=== PATIENT | male | born 1995 ===

== ENCOUNTER 2022-09-08 08:57 | Emergency (ER) | payer OTHER, SELFPAY ==
--- NOTE | ~2022-09-08 | CT_ITS ---
EXAMINATION: CT ABDOMEN AND PELVIS WITHOUT CONTRAST CLINICAL INFORMATION: Left lower quadrant pain. Elevated white count. COMPARISON: None TECHNIQUE: Multidetector volumetric imaging was performed from the superior aspect of the liver through the pubic symphysis. Sagittal and coronal reformatted images were obtained on the technologist's workstation. This CT examination was performed using dose optimization techniques as appropriate, variously including the following: *Automated exposure control *Adjustment of mA and/or kV according to patient size (this includes techniques or standardized protocols for targeted exams where dose is matched to indication/reason for exam; i.e. extremities or head) *Use of iterative reconstruction technique DLP: 502 mGy-cm FINDINGS: LUNG BASES: The visualized lung bases are unremarkable. LIVER, GALLBLADDER, AND BILIARY TREE: The liver is normal in size, shape, and attenuation. No focal hepatic lesion or biliary ductal dilatation is present. The gallbladder is unremarkable with no evidence of radiopaque gallstones, gallbladder wall thickening, or obvious pericholecystic inflammatory changes. PANCREAS: Unremarkable. SPLEEN: Unremarkable. ADRENAL GLANDS: Unremarkable. KIDNEYS AND URETERS: The kidneys are normal in size, shape, and attenuation. No hydronephrosis, hydroureter, or calculi seen. No perinephric stranding. BLADDER: Unremarkable. GASTROINTESTINAL TRACT: The small and large bowel are unremarkable. There is a small appendicolith with normal-appearing appendix best visualized on sagittal image 57/7. ABDOMINAL WALL: No significant hernia is appreciated. LYMPH NODES: Normal. VASCULAR: Unremarkable. PELVIC VISCERA: Unremarkable. OSSEOUS STRUCTURES: No aggressive lytic or sclerotic process seen. CT/CT abdomen pelvis wo IV con IMPRESSION: No acute intra-abdominal process seen. Fleischner guidelines were followed.
[2022-09-08 09:00] VITALS: BP 145/110; PULSE 133; RESP 18; TEMP 36.3; O2SAT 98; BMI 27.1
[2022-09-08 09:13] LABS: MANUAL DIFF FLAG NO
[2022-09-08 09:16] LABS: Basophils Percent Auto 0.2 % (0-2); Eosinophils Absolute Auto 0.1 X10*3/uL (0.0-0.4); Eosinophils Percent Auto 0.5 % (0-4); Hematocrit 44.3 % (42.0-52.0); Hemoglobin 15.1 g/dl (14.0-18.0); Imm Gran Abs Auto 0.05 X10*3/uL (0.00-0.03); Imm Gran Pct Auto 0.4 % (0.0-0.4); Lymphocytes Absolute Auto 2.4 X10*3/uL (1.2-4.9); Lymphocytes Percent Auto 17.8 % (20-40); Mean Corpuscular HGB Conc 34.1 g/dl (31.0-36.0); Mean Corpuscular Hemoglobin 28.9 pg (27.0-33.0); Mean Corpuscular Volume 84.9 fL (80.0-98.0); Mean Platelet Volume 9.7 fL (9.4-12.4); Monocytes Absolute Auto 0.8 X10*3/uL (0.1-1.2); Neutrophils Absolute Auto 10.2 x10*3/uL (2.0-8.3); Neutrophils Percent Auto 75.1 % (45-73); Platelet Count 223 X10*3/uL (160-400); Red Blood Count 5.22 X10*6/uL (4.60-5.80); Red Cell Distribution Width 12.4 % (11.0-16.0); White Blood Count 13.6 X10*3/uL (4.8-10.8)
[2022-09-08 09:31] LABS: Anion Gap 12 (12-20); Blood Urea Nitrogen 9 mg/dL (9-16); Calcium 10.1 mg/dL (8.4-10.2); Carbon Dioxide 26 mmol/L (22-29); Chloride 105 mmol/L (96-108); Creatinine Clr Calc Pharmacy 131.2; Estimated Glomerular Filt Rate > 60; Glucose Random 105 mg/dL (60-115); Potassium 4.2 mmol/L (3.3-5.1); Sodium 139 mmol/L (135-145)
[2022-09-08 09:34] VITALS: BP 133/69
[2022-09-08 11:30] VITALS: BP 128/74; PULSE 113; RESP 20; O2SAT 100
--- NOTE | 2022-09-08 11:41 | ED_ITS ---
HPI - General Adult General Chief complaint: Abdominal Pain Stated complaint: abd pain Time Seen by Provider: 09/08/22 11:41 Source: patient Mode of arrival: ambulatory Limitations: no limitations History of Present Illness HPI narrative: Patient is a 27 year old assigned male at with no reported medical history presenting to the emergency department today with abdominal pain. Patient states that at 0300 today he woke up with left lower quadrant abdominal pain. Patient states that the pain has resolved now. Patient states that his last bowel movement was today and was uneventful. Patient denies any dizziness, lightheadedness, abdominal pain, nausea, vomiting, fever, chills, blurry vision, double vision, loss of vision, chest pain, difficulty breathing, shortness of breath, back pain, night sweats, pain with urination, increased urinary frequency, increased urinary urgency, blood in his urine or stool, syncope or a near syncopal episode, recent trauma or falls, bowel incontinence, bladder incontinence, bowel retention, bladder retention, or any other complaints at this time. Onset (ago): hour(s) Location: abdomen and left Radiation: non-radiation Severity: mild Severity scale (1-10): 4 Quality: dull Pain Consistency: now resolved Relieving factors: none Exacerbating factors: none Associated symptoms: denies other symptoms Treatments prior to arrival: none Related Data Allergies Allergy/AdvReac Type Severity Reaction Status Date / Time No Known Allergies Allergy Verified 09/08/22 09:05 Review of Systems Constitutional: Constitutional: Reports no additional constitutional complaints, Denies chills, Denies fever(s) and Denies night sweats Eyes: Eyes: Reports no additional eye complaints, Denies blurry vision, Denies change in vision, Denies diplopia, Denies eye discharge, Denies loss of vision and Denies eye pain ENT: Denies dizziness Cardiovascular: Cardiovascular: Reports no additional cardiovascular complaints, Denies chest pain, Denies lightheadedness, Denies Loss of Consciousness and Denies dyspnea Respiratory: Respiratory: Reports no additional respiratory complaints and Denies dyspnea Gastrointestinal: Gastrointestinal: Reports no additional gastrointestinal complaints, Reports abdominal pain, Denies melena, Denies hematochezia, Denies change in bowel habits and Denies change in stool character Genitourinary: Genitourinary: Reports no additional male genitourinary complaints, Denies hematuria, Denies oliguria, Denies difficulty urinating, Denies dysuria, Denies urinary frequency, Denies urinary hesitancy, Denies urinary incontinence and Denies urinary urgency Musculoskeletal: Musculoskeletal: Reports no additional musculoskeletal complaints, Denies numbness and Denies tingling Neurologic: Denies dizziness, Denies loss of vision, Denies numbness and Denies tingling Psychiatric: Psychiatric: Reports no additional psychiatric complaints Endocrine: Endocrine: Reports no additional endocrine complaints Hematologic/Lymphatic: Hematologic/Lymphatic: Reports no additional hematologic/lymphatic complaints Allergic/Immunologic: Allergic/Immunologic: Reports no additional allergic/immunologic complaints [facility] Past Medical History Attestation statement: The following information was validated with the patient. Source: old records reviewed and nursing notes reviewed Social History Social History Advance Directives: No Advance Directives Information Provided: No Physical Exam ED Vital Signs: Vital Signs - 24 hr 09/08/22 09:00 09/08/22 09:34 09/08/22 11:30 Temperature 97.4 F Pulse Rate 133 H 113 H Respiratory Rate 18 20 Blood Pressure 145/110 H 133/69 128/74 Pulse Oximetry 98 100 Oxygen Delivery Method Room Air Room Air 09/08/22 13:40 Temperature Pulse Rate 105 H Respiratory Rate 16 Blood Pressure 113/66 Pulse Oximetry 100 Oxygen Delivery Method Room Air BMI result Body Mass Index 27.1 Const General: cooperative, no acute distress, alert and awake Nutritional Appearance: well nourished Orientation/consciousness: patient oriented x3 Limitations: no limitations HENMT Head: Yes normal to inspection and Yes atraumatic Ears: hearing grossly normal bilaterally and external ears normal General nose exam: Normal external nose present, no nasal discharge noted and no epistaxis Face and sinus: Yes normal facial exam, No abrasion and No laceration Mouth: Normal oral and palatal mucosa present, no drooling and no muffled voice Eyes General: appearance normal, both eyes and all related structures Periorbital: periorbital findings normal Eyelids: Yes eyelids normal Conjunctivae: conjunctivae normal Pupils: Equal, round and reactive pupils present EOM: EOMs intact bilaterally Neck Neck: Yes normal visual inspection, Yes full ROM and Yes no lymphadenopathy Chest Chest palpation & inspection: normal inspection of the chest Resp Effort & Inspection: normal respiratory effort and able to speak in complete sentences Auscultation: clear to auscultation bilaterally Cardio Rate: regular rate Rhythm: regular rhythm GI Inspection: Yes normal to inspection Palpation (GI): Soft to palpation, not firm, nontender, no guarding and not rigid Neuro General: patient oriented x3 and moves all extremities Cranial nerves: Yes Equal, round and reactive pupils present Cognition (Neuro): normal cognition Motor exam (neuro): 5/5 motor strength present throughout Sensory Exam: Normal double simultaneous stimulation for sensation Coordination: [id number] test normal Extrem General: Yes normal to inspection, Yes full ROM and Yes capillary refill normal Psych Appearance: grossly normal Mental Status: mental status grossly normal Affect: normal affect Attitude: cooperative Thought process: Normal thought process present Thought content: Normal thought content present Insight: Good insight present (Psych) Medical Decision Making Medical Decision Making MDM Narrative: Patient is a 27 year old assigned male at with no reported medical history presenting to the emergency department today with left lower quadrant abdominal pain. Patient's physical exam was unremarkable. Patient's blood work showed a slightly elevated WBC count of 13.6 but was otherwise unremarkable. Patient's urine showed no acute process. Patient's abdominal CT showed no acute process. I explained my physical exam findings as well as all test results to the patient. I answered all questions asked by the patient. I stressed the importance of the patient taking his medication as prescribed. I stressed the importance of the patient following up with his primary care provider. I stressed the importance of the patient returning to the emergency department immediately if his symptoms were to worsen or if he were to develop any dizziness, shortness of breath, difficulty breathing, chest pain, blurry vision, loss of vision, nausea, vomiting, abdominal pain, fever, chills, back pain, or any other complaints. Patient verbalized agreement and understanding with this treatment plan and discharge. Differential Diagnosis Differential Diagnoses: The differential diagnosis associated with the presentation includes abdominal pain, constipation Lab Data MDM Lab Attestation statement: I reviewed the patient's lab results. Result Diagrams: 09/08/22 09:07 09/08/22 09:07 Labs: Lab Results 09/08/22 09/08/22 09/08/22 Range/Units 09:07 09:07 12:00 WBC 13.6 H (4.8-10.8) X10*3/uL RBC 5.22 (4.60-5.80) X10*6/uL Hgb 15.1 (14.0-18.0) g/dl Hct 44.3 (42.0-52.0) % MCV 84.9 (80.0-98.0) fL MCH 28.9 (27.0-33.0) pg MCHC 34.1 (31.0-36.0) g/dl RDW 12.4 (11.0-16.0) % Plt Count 223 (160-400) X10*3/uL MPV 9.7 (9.4-12.4) fL Immature Gran % (Auto) 0.4 (0.0-0.4) % Neut % (Auto) 75.1 H (45-73) % Lymph % (Auto) 17.8 L (20-40) % [place] % (Auto) 6.0 (2-11) % Eos % (Auto) 0.5 (0-4) % Baso % (Auto) 0.2 (0-2) % Lymph # (Auto) 2.4 (1.2-4.9) X10*3/uL [place] # (Auto) 0.8 (0.1-1.2) X10*3/uL Eos # (Auto) 0.1 (0.0-0.4) X10*3/uL Baso # (Auto) 0.0 (0.0-0.2) X10*3/uL Abs Immat Gran (auto) 0.05 H (0.00-0.03) X10*3/uL Absolute Neuts (auto) 10.2 H (2.0-8.3) x10*3/uL Absolute Nucleated RBC 0.000 (0.0-0.012) X10*3/uL Nucleated RBC % (auto) 0.0 (0.0-0.2) /100WBC Sodium 139 (135-145) mmol/L Potassium 4.2 (3.3-5.1) mmol/L Chloride 105 (96-108) mmol/L Carbon Dioxide 26 (22-29) mmol/L Anion Gap 12 (12-20) BUN 9 (9-16) mg/dL Creatinine 0.92 (0.5-1.4) mg/dL Estim Creat Clear Calc 131.2 Estimated GFR > 60 Random Glucose 105 (60-115) mg/dL Calcium 10.1 (8.4-10.2) mg/dL Urine Color Urine Appearance Urine pH (5.0-9.0) Ur Specific [place] (1.005-1.025) Urine Protein (Neg-Trace) mg/dL Urine Glucose (UA) (Negative) mg/dL Urine Ketones (Negative) mg/dL Urine Blood (Negative) Urine Nitrite (Negative) Ur Leukocyte Esterase (Negative) Influenza Type A (PCR) NEGATIVE (Negative) Influenza Type B (PCR) NEGATIVE (Negative) RSV RNA Qual (PCR) NEGATIVE (Negative) SARS-CoV-2 RNA (RT-PCR) NEGATIVE (Negative) 09/08/22 Range/Units 14:02 WBC (4.8-10.8) X10*3/uL RBC (4.60-5.80) X10*6/uL Hgb (14.0-18.0) g/dl Hct (42.0-52.0) % MCV (80.0-98.0) fL MCH (27.0-33.0) pg MCHC (31.0-36.0) g/dl RDW (11.0-16.0) % Plt Count (160-400) X10*3/uL MPV (9.4-12.4) fL Immature Gran % (Auto) (0.0-0.4) % Neut % (Auto) (45-73) % Lymph % (Auto) (20-40) % [place] % (Auto) (2-11) % Eos % (Auto) (0-4) % Baso % (Auto) (0-2) % Lymph # (Auto) (1.2-4.9) X10*3/uL [place] # (Auto) (0.1-1.2) X10*3/uL Eos # (Auto) (0.0-0.4) X10*3/uL Baso # (Auto) (0.0-0.2) X10*3/uL Abs Immat Gran (auto) (0.00-0.03) X10*3/uL Absolute Neuts (auto) (2.0-8.3) x10*3/uL Absolute Nucleated RBC (0.0-0.012) X10*3/uL Nucleated RBC % (auto) (0.0-0.2) /100WBC Sodium (135-145) mmol/L Potassium (3.3-5.1) mmol/L Chloride (96-108) mmol/L Carbon Dioxide (22-29) mmol/L Anion Gap (12-20) BUN (9-16) mg/dL Creatinine (0.5-1.4) mg/dL Estim Creat Clear Calc Estimated GFR Random Glucose (60-115) mg/dL Calcium (8.4-10.2) mg/dL Urine Color Yellow Urine Appearance Clear Urine pH 7.5 (5.0-9.0) Ur Specific [place] 1.010 (1.005-1.025) Urine Protein Negative (Neg-Trace) mg/dL Urine Glucose (UA) Negative (Negative) mg/dL Urine Ketones Negative (Negative) mg/dL Urine Blood Negative (Negative) Urine Nitrite Negative (Negative) Ur Leukocyte Esterase Negative (Negative) Influenza Type A (PCR) (Negative) Influenza Type B (PCR) (Negative) RSV RNA Qual (PCR) (Negative) SARS-CoV-2 RNA (RT-PCR) (Negative) Radiology Impression Discussion of test interpretation with radiology: I have reviewed the radiologist's reading. Radiologist Impression: My interpretation is in agreement with the radiologist's impression of this imaging study. EXAMINATION: CT ABDOMEN AND PELVIS WITHOUT CONTRAST? CLINICAL INFORMATION: Left lower quadrant pain. Elevated white count.? COMPARISON: None? TECHNIQUE: Multidetector volumetric imaging was performed from the superior aspect of the liver through the pubic symphysis. Sagittal and coronal reformatted images were obtained on the technologist's workstation.? This CT examination was performed using dose optimization techniques as appropriate, variously including the following: *Automated exposure control *Adjustment of mA and/or kV according to patient size (this includes techniques or standardized protocols for targeted exams where dose is matched to indication/reason for exam; i.e. extremities or head) *Use of iterative reconstruction technique DLP: 502 mGy-cm FINDINGS: LUNG BASES: The visualized lung bases are unremarkable.? LIVER, GALLBLADDER, AND BILIARY TREE: The liver is normal in size, shape, and attenuation. No focal hepatic lesion or biliary ductal dilatation is present. The gallbladder is unremarkable with no evidence of radiopaque gallstones, gallbladder wall thickening, or obvious pericholecystic inflammatory changes.? PANCREAS: Unremarkable.? SPLEEN: Unremarkable.? ADRENAL GLANDS: Unremarkable.? KIDNEYS AND URETERS: The kidneys are normal in size, shape, and attenuation. No hydronephrosis, hydroureter, or calculi seen. No perinephric stranding. ? BLADDER: Unremarkable.? GASTROINTESTINAL TRACT: The small and large bowel are unremarkable. There is a small appendicolith with normal-appearing appendix best visualized on sagittal image 57/7.? ABDOMINAL WALL: No significant hernia is appreciated.? LYMPH NODES: Normal. VASCULAR: Unremarkable. PELVIC VISCERA: Unremarkable.? OSSEOUS STRUCTURES: No aggressive lytic or sclerotic process seen.? CT/CT abdomen pelvis wo IV con IMPRESSION: No acute intra-abdominal process seen.? ? Fleischner guidelines were followed. Dictated By: Josue Delarosa MD Signed By: Electronically signed by Josue Delarosa MD 09/08/22 0707 Discharge Plan Discharge Clinical Impression: Constipation, Abdominal pain Patient Disposition: Home, Self-Care Instructions: Constipation (ED), Abdominal Pain (ED) Additional Instructions: Follow up with your primary care provider. Return to the emergency department immediately if your symptoms worsen or if you develop any dizziness, shortness of breath, difficulty breathing, chest pain, blurry vision, loss of vision, nausea, vomiting, abdominal pain, fever, chills, back pain, or any other complaints. Referrals: [facility] [place] Family [facility] [Provider Group] (Call to establish and follow up with a primary care provider. If you already have a primary care provider, please follow up with them. ) [facility] [place] Primary [facility], [place] [Provider Group] (Call to establish and follow up with a primary care provider. If you already have a primary care provider, please follow up with them. ) [facility] [Provider Group] (Call to establish and follow up with a primary care provider. If you already have a primary care provider, please follow up with them. ) Stand Alone Forms: Work/School Release Interventions: ED Discharge Assessment Last Done: 09/08/22 14:06 Discharge Date/Time: 09/08/22 14:09 Print Language: Spanish
[2022-09-08 12:44] LABS: Influenza A PCR NEGATIVE (Negative); Influenza B PCR NEGATIVE (Negative); Resp Syncy Virus RNA Qual PCR NEGATIVE (Negative); SARS COV2 PCR INHOUSE NEGATIVE (Negative)
[2022-09-08 13:40] VITALS: BP 113/66; PULSE 105; RESP 16; O2SAT 100
[2022-09-08 14:12] LABS: Appearance Urine Clear; Color Urine Yellow; Glucose Urine UA Negative (Negative); Leukocyte Esterase Urine Negative (Negative); Nitrite Urine Negative (Negative); PH 7.5 (5.0-9.0); Urine Blood Negative (Negative); Urine Ketones Negative (Negative); Urine Protein Negative (Neg-Trace)
== END 2022-09-08 14:09 | disposition home or self-care (01) ==
PROVIDERS: Physician Assistant Medical; Emergency Provider Student in an Organized Health Care Education/Training Program
DX: K59.00 Constipation, unspecified (principal); R10.32 Left lower quadrant pain; Z20.828 Contact with and (suspected) exposure to other viral communicable diseases
CPT/HCPCS: 0241U; 36415; 74176; 80048; 81003; 85025; 99283; 99284

== ENCOUNTER 2023-02-01 09:19 | Emergency (ER) | payer OTHER, SELFPAY ==
--- NOTE | ~2023-02-01 | CT_ITS ---
EXAMINATION: CT ABDOMEN AND PELVIS WITHOUT CONTRAST CLINICAL INFORMATION: Abdominal pain, rule out kidney stones COMPARISON: 09/08/2022 TECHNIQUE: Multidetector volumetric imaging was performed from the superior aspect of the liver through the pubic symphysis. Sagittal and coronal reformatted images were obtained on the technologist's workstation. This CT examination was performed using dose optimization techniques as appropriate, variously including the following: *Automated exposure control *Adjustment of mA and/or kV according to patient size (this includes techniques or standardized protocols for targeted exams where dose is matched to indication/reason for exam; i.e. extremities or head) *Use of iterative reconstruction technique DLP: 481 mGy-cm FINDINGS: LUNG BASES: The visualized lung bases are unremarkable. LIVER, GALLBLADDER, AND BILIARY TREE: The liver is normal in size, shape, and attenuation. No focal hepatic lesion or biliary ductal dilatation is present. The gallbladder is unremarkable with no evidence of radiopaque gallstones, gallbladder wall thickening, or obvious pericholecystic inflammatory changes. PANCREAS: Some limited visualization of the pancreas due to unopacified bowel and adjacent vascular structures SPLEEN: Unremarkable. ADRENAL GLANDS: Unremarkable. KIDNEYS AND URETERS: No evidence of renal or ureteral stone or obstruction. BLADDER: Unremarkable. GASTROINTESTINAL TRACT: The bowel pattern appears nonobstructing. The appendix The appendix is prominent in size here. Measures 1.2 cm. Some mild periappendiceal soft tissue stranding but this was also the case on previous exam. Previously the hepatic appendix measured up to 1 cm approximately ABDOMINAL WALL: No significant hernia is appreciated. LYMPH NODES: Some mildly prominent mesenteric nodes most noted in the right lower quadrant are once again present mildly increasing from previous. These may be reactive. VASCULAR: Unremarkable. PELVIC VISCERA: Unremarkable. OSSEOUS STRUCTURES: Unremarkable. CT/CT abdomen pelvis wo IV con IMPRESSION: No evidence of renal or ureteral stone or obstruction. Of note here is prominent diameter of the appendix measuring up to 1.2 cm. Previously measured 1 cm. Is no significant wall thickening but some possible mild wall thickening is present. There is some mild periappendiceal soft tissue stranding but this was also the case in 2021 and could represent the patient's baseline. Still appendicitis cannot be excluded and would need to be considered and correlation needs to be made clinically. Mildly increasing mesenteric nodes mostly noted in the right lower quadrant could be reactive
[2023-02-01 09:49] VITALS: BP 145/92; PULSE 119; RESP 19; TEMP 36.6; O2SAT 98; BMI 27.8
[2023-02-01 11:25] LABS: Appearance Urine Clear; Color Urine Yellow; Glucose Urine UA Negative (Negative); Leukocyte Esterase Urine Negative (Negative); Nitrite Urine Negative (Negative); PH 6.5 (5.0-9.0); Specific Gravity - Urine <= 1.005 (1.005-1.025); Urine Blood Negative (Negative); Urine Ketones Negative (Negative); Urine Protein Negative (Neg-Trace)
[2023-02-01 12:22] LABS: MANUAL DIFF FLAG NO
[2023-02-01 12:23] LABS: Basophils Percent Auto 0.3 % (0-2); Eosinophils Absolute Auto 0.1 X10*3/uL (0.0-0.4); Eosinophils Percent Auto 1.9 % (0-4); Hematocrit 45.8 % (42.0-52.0); Hemoglobin 15.4 g/dl (14.0-18.0); Imm Gran Abs Auto 0.02 X10*3/uL (0.00-0.03); Imm Gran Pct Auto 0.3 % (0.0-0.4); Lymphocytes Absolute Auto 2.2 X10*3/uL (1.2-4.9); Lymphocytes Percent Auto 34.1 % (20-40); Mean Corpuscular HGB Conc 33.6 g/dl (31.0-36.0); Mean Corpuscular Hemoglobin 28.6 pg (27.0-33.0); Mean Corpuscular Volume 85.1 fL (80.0-98.0); Mean Platelet Volume 9.7 fL (9.4-12.4); Monocytes Absolute Auto 0.5 X10*3/uL (0.1-1.2); Monocytes Percent Auto 8.1 % (2-11); Neutrophils Absolute Auto 3.5 x10*3/uL (2.0-8.3); Neutrophils Percent Auto 55.3 % (45-73); Platelet Count 225 X10*3/uL (160-400); Red Blood Count 5.38 X10*6/uL (4.60-5.80); Red Cell Distribution Width 12.6 % (11.0-16.0); White Blood Count 6.3 X10*3/uL (4.8-10.8)
[2023-02-01 12:47] LABS: Alanine Aminotransferase 104 U/L (0-40); Albumin Level 4.7 g/dL (3.5-5.0); Alkaline Phosphatase 122 U/L (39-117); Anion Gap 15 (12-20); Aspartate Amino Transferase 46 U/L (5-37); Bilirubin Direct 0.1 mg/dL (0.0-0.5); Bilirubin Total 0.6 mg/dL (0.0-1.0); Blood Urea Nitrogen 18 mg/dL (9-16); Calcium 9.9 mg/dL (8.4-10.2); Carbon Dioxide 25 mmol/L (22-29); Chloride 107 mmol/L (96-108); Creatinine Clr Calc Pharmacy 114.9; Estimated Glomerular Filt Rate > 60; Glucose Random 87 mg/dL (60-115); Lipase 30 U/L (8-78); Potassium 4.1 mmol/L (3.3-5.1); Sodium 143 mmol/L (135-145); Total Protein 7.7 g/dL (6.5-8.0)
--- NOTE | 2023-02-01 13:20 | ED_ITS ---
HPI - Male Genitourinary General Chief complaint: Urogenital-Male Stated complaint: Lower Abd Pain Time Seen by Provider: 02/01/23 11:08 History of Present Illness HPI Narrative: patient complains of low abdominal pain mostly central waxing and waning over the past month, no acute change today, pain is mild There is no accompanying vomiting there is no weight loss there is no loss of appetite there is no nausea vomiting or diarrhea no dysuria no blood in the urine no fever no anorexia no discharge no testicular pain or swelling no rash or sores Related Data Allergies Allergy/AdvReac Type Severity Reaction Status Date / Time No Known Allergies Allergy Verified 02/01/23 09:49 [facility] Past Medical History Source: nursing notes reviewed Social History Social History Alcohol intake: current Alcohol intake frequency: a few times a month Smoked in Last 30 Days: No Use of substances other than those prescribed or required for medical reasons: No Advance Directives: No Advance Directives Information Provided: Yes Physical Exam Vital Signs: Vital Signs: Last Vital Signs Temp 98.4 F 02/01/23 13:25 Pulse 110 H 02/01/23 13:25 Resp 18 02/01/23 13:25 BP 117/85 02/01/23 13:25 Pulse Ox 100 02/01/23 13:25 O2 Del Method Room Air 02/01/23 13:25 BMI result Body Mass Index 27.8 general appearance comfortable no distress Eyes are anicteric no pallor The mucous membranes are moist no redness swelling or exudate Neck is supple Chest clear to auscultation bilateral The abdomen there was mild diffuse lower abdominal tenderness no rebound or gua rding, tenderness is worse in the midline there is no McBurney's point tenderness Extremities for range of motion x4 Skin no rash Course Course Course Narrative: patient remained comfortable throughout doing his work and chatting on the phone with no change in condition, pain remains mild he is tolerating p.o. Lab work showed some minor elevations of liver enzymes and he is advised to follow with his doctor to recheck that in an appropriate time frame, he does have an appointment with his doctor in coming weeks No other significant lab abnormalities, urinalysis was normal imaging with nonc ontrast CT showed and enlarged appendix at 1.2 cm, previous imaging 1 year ago showed a 1 cm appendix, otherwise imaging was at the baseline, no abscess no other acute finding Re-examination of the patient's abdomen showed very minor suprapubic tenderness no rebound no guarding there was no tenderness at McBurney's point no significant right lower quadrant tenderness, patient tolerates p.o. he is not nauseous and feels the same as he has felt in recent weeks, so doubt acute appendicitis He is discharged to follow with his doctor and possibly surgeon about the chronically enlarged appendix and well-appearing patient without significant pain tolerating p.o. no nausea is discharged Medical Decision Making Lab Data MDM Lab Attestation statement: I reviewed the patient's lab results. 02/01/23 12:17 02/01/23 12:17 Labs: Lab Results 02/01/23 02/01/23 02/01/23 Range/Units 11:17 12:17 12:17 WBC 6.3 (4.8-10.8) X10*3/uL RBC 5.38 (4.60-5.80) X10*6/uL Hgb 15.4 (14.0-18.0) g/dl Hct 45.8 (42.0-52.0) % MCV 85.1 (80.0-98.0) fL MCH 28.6 (27.0-33.0) pg MCHC 33.6 (31.0-36.0) g/dl RDW 12.6 (11.0-16.0) % Plt Count 225 (160-400) X10*3/uL MPV 9.7 (9.4-12.4) fL Immature Gran % (Auto) 0.3 (0.0-0.4) % Neut % (Auto) 55.3 (45-73) % Lymph % (Auto) 34.1 (20-40) % [place] % (Auto) 8.1 (2-11) % Eos % (Auto) 1.9 (0-4) % Baso % (Auto) 0.3 (0-2) % Lymph # (Auto) 2.2 (1.2-4.9) X10*3/uL [place] # (Auto) 0.5 (0.1-1.2) X10*3/uL Eos # (Auto) 0.1 (0.0-0.4) X10*3/uL Baso # (Auto) 0.0 (0.0-0.2) X10*3/uL Abs Immat Gran (auto) 0.02 (0.00-0.03) X10*3/uL Absolute Neuts (auto) 3.5 (2.0-8.3) x10*3/uL Absolute Nucleated RBC 0.000 (0.0-0.012) X10*3/uL Nucleated RBC % (auto) 0.0 (0.0-0.2) /100WBC Sodium 143 (135-145) mmol/L Potassium 4.1 (3.3-5.1) mmol/L Chloride 107 (96-108) mmol/L Carbon Dioxide 25 (22-29) mmol/L Anion Gap 15 (12-20) BUN 18 H (9-16) mg/dL Creatinine 1.05 (0.5-1.4) mg/dL Estim Creat Clear Calc 114.9 Estimated GFR > 60 Random Glucose 87 (60-115) mg/dL Calcium 9.9 (8.4-10.2) mg/dL Total Bilirubin 0.6 (0.0-1.0) mg/dL Direct Bilirubin 0.1 (0.0-0.5) mg/dL AST 46 H (5-37) U/L ALT 104 H (0-40) U/L Alkaline Phosphatase 122 H (39-117) U/L Total Protein 7.7 (6.5-8.0) g/dL Albumin 4.7 (3.5-5.0) g/dL Lipase 30 (8-78) U/L Urine Color Yellow Urine Appearance Clear Urine pH 6.5 (5.0-9.0) Ur Specific Peak <= 1.005 (1.005-1.025) Urine Protein Negative (Neg-Trace) mg/dL Urine Glucose (UA) Negative (Negative) mg/dL Urine Ketones Negative (Negative) mg/dL Urine Blood Negative (Negative) Urine Nitrite Negative (Negative) Ur Leukocyte Esterase Negative (Negative) Discharge Plan Discharge Clinical Impression: Abdominal pain Patient Disposition: Home, Self-Care Additional Instructions: we are not sure what is causing your pain The workup today showed mildly elevated liver enzymes which should be recheck with your doctor CT scan showed an enlarged appendix but no active appendicitis on exam or the CT Follow with you doctor or surgeon for further evaluation of this Return to the ER any time for worsening abdominal pain vomiting inability to eat any worse condition or any concerns Referrals: Physician,Nonstaff [Primary Care Provider] - 1 Week Yury Sanchez MD [Physician] - ( enlarged appendix seen on CT with no active appendicitis, symptoms over many weeks, no tenderness over appendix) Interventions: ED Discharge Assessment Last Done: 02/01/23 14:21 Discharge Date/Time: 02/01/23 14:24
[2023-02-01 13:25] VITALS: BP 117/85; PULSE 110; RESP 18; TEMP 36.9; O2SAT 100
--- NOTE | 2023-02-01 13:27 | PC.NURSE ---
pt resting heart rate 100, pt reports that his normal resting heart rate is elevated.
== END 2023-02-01 14:24 | disposition home or self-care (01) ==
PROVIDERS: Physician Assistant Medical; Emergency Provider Emergency Medicine Emergency Medical Services
DX: R10.30 Lower abdominal pain, unspecified (principal)
CPT/HCPCS: 36415; 74176; 80048; 80076; 81003; 83690; 85025; 99284

== ENCOUNTER 2023-07-26 01:20 | Inpatient (IN) | payer OTHER, SELFPAY ==
[2023-07-26] VITALS (16 sets, daily range): BP systolic 103–143; BP diastolic 42–76; PULSE 79–101; RESP 16–27; TEMP 36.6–38.2; O2SAT 94–100; BMI 28.5
--- NOTE | ~2023-07-26 | CT_ITS ---
EXAMINATION: CT ABDOMEN AND PELVIS WITHOUT CONTRAST CLINICAL INFORMATION: Left flank pain. COMPARISON: None available. TECHNIQUE: Multidetector volumetric imaging was performed from the superior aspect of the liver through the pubic symphysis. Sagittal and coronal reformatted images were obtained on the technologist's workstation. This CT examination was performed using dose optimization techniques as appropriate, variously including the following: *Automated exposure control *Adjustment of mA and/or kV according to patient size (this includes techniques or standardized protocols for targeted exams where dose is matched to indication/reason for exam; i.e. extremities or head) *Use of iterative reconstruction technique DLP: 628 mGy-cm FINDINGS: LUNG BASES: The visualized lung bases are unremarkable. LIVER, GALLBLADDER, AND BILIARY TREE: The liver is normal in size, shape, and attenuation. No focal hepatic lesion or biliary ductal dilatation is present. The gallbladder is unremarkable with no evidence of radiopaque gallstones, gallbladder wall thickening, or obvious pericholecystic inflammatory changes. PANCREAS: Unremarkable. SPLEEN: Unremarkable. ADRENAL GLANDS: Unremarkable. KIDNEYS AND URETERS: The kidneys are normal in size, shape, and attenuation. No hydronephrosis, hydroureter, or calculi seen. No perinephric stranding. BLADDER: Unremarkable. GASTROINTESTINAL TRACT: The appendix is dilated up to 1.4 cm with mild periappendiceal infiltrative change. The appendix extends into the pelvis just to the right of midline. There is minimal free fluid within the pelvis. ABDOMINAL WALL: No significant hernia is appreciated. LYMPH NODES: Normal. VASCULAR: Unremarkable. PELVIC VISCERA: Unremarkable. OSSEOUS STRUCTURES: Unremarkable. CT/CT abdomen pelvis wo IV con IMPRESSION: There is an apparent dilated appendix extending into the pelvis with mild surrounding infiltration. Suspect early appendicitis. The patient complained of left-sided pain. The atypical location of the appendix may explain this presentation. Minimal free fluid within the pelvis. Fleischner guidelines were followed.
--- NOTE | 2023-07-26 01:43 | ED.ABDPAIN ---
HPI - Abdominal Pain General Chief Complaint: Abdominal Pain Stated Complaint: abdominal pain Time Seen by Provider: 07/26/23 01:43 Source: patient Mode of arrival: ambulatory Limitations: no limitations History of Present Illness HPI narrative: Patient no significant past medical history adopted comes here was sudden onset of pain lower abdomen started at noon today with nausea and cold sweats pain is more on the left side and the right no gross hematuria no fever , had chills , had similar pain in the past with enlarged appendix without any inflammation in the last CT scan was 01/31 slightly constipated moved his bowel earlier today Related Data Allergies Allergy/AdvReac Type Severity Reaction Status Date / Time No Known Allergies Allergy Verified 02/01/23 09:49 Review of Systems Review of Systems Yes all other systems are reviewed and are negative FOR[facility]LY [facility] Social History Social History Alcohol intake: current Alcohol intake frequency: holidays/special occasions only Smoked in Last 30 Days: No Use of substances other than those prescribed or required for medical reasons: No Advance Directives: No Advance Directives Information Provided: No Physical Exam ED Vital Signs: Vital Signs - 24 hr 07/26/23 01:28 Temperature 97.8 F Pulse Rate 79 Respiratory Rate 18 Blood Pressure 106/46 L Pulse Oximetry 99 Oxygen Delivery Method Room Air BMI result Body Mass Index 28.5 Appearance: Alert. Oriented X3. In moderate distress Eyes: No pallor ENT: Pharynx normal. Oral Mucosa moist Neck: Normal inspection. Neck supple. CVS: Normal heart rate and rhythm. Pulses normal. Respiratory: No respiratory distress. Equal air entry bilateral, no wheezing/rales/rhonchi Abdomen: Soft, diffuse tenderness lower abdomen with guarding, Bowel sounds are present, no mass palpable, no CVA tenderness Skin: Skin warm and dry. Normal skin color. Normal skin turgor. Extremities: No lower extremity edema. No calf tenderness Neuro: Oriented X 3. No motor deficit. Medical Decision Making Medical Decision Making MDM Narrative: Patient with lower abdominal pain CT scan showed dilated appendix up to 14 mm with Jessa appendical inflammation. Case discussed with Dr. faulkner-surgeon will admit the patient for surgery in a.m. Differential Diagnosis Differential Diagnoses: The differential diagnosis associated with the presentation includes Acute appendicitis/kidney stone/UTI Admission/Observation Consideration of admission/observation: Escalation of care including admission/observation considered Consult Healthcare Provider Management of the patient was discussed with: Cutter Head Sharpener Surgeon Lab Data MDM Lab Attestation statement: I reviewed the patient's lab results. 07/26/23 01:56 07/26/23 01:56 Labs: Lab Results 07/26/23 Range/Units 01:56 WBC 10.6 (4.8-10.8) X10*3/uL RBC 4.66 (4.60-5.80) X10*6/uL Hgb 13.6 L (14.0-18.0) g/dl Hct 38.8 L (42.0-52.0) % MCV 83.3 (80.0-98.0) fL MCH 29.2 (27.0-33.0) pg MCHC 35.1 (31.0-36.0) g/dl RDW 11.9 (11.0-16.0) % Plt Count 200 (160-400) X10*3/uL MPV 9.5 (9.4-12.4) fL Immature Gran % (Auto) 0.2 (0.0-0.4) % Neut % (Auto) 82.2 H (45-73) % Lymph % (Auto) 11.4 L (20-40) % [place] % (Auto) 6.1 (2-11) % Eos % (Auto) 0.0 (0-4) % Baso % (Auto) 0.1 (0-2) % Lymph # (Auto) 1.2 (1.2-4.9) X10*3/uL [place] # (Auto) 0.6 (0.1-1.2) X10*3/uL Eos # (Auto) 0.0 (0.0-0.4) X10*3/uL Baso # (Auto) 0.0 (0.0-0.2) X10*3/uL Abs Immat Gran (auto) 0.02 (0.00-0.03) X10*3/uL Absolute Neuts (auto) 8.7 H (2.0-8.3) x10*3/uL Absolute Nucleated RBC 0.000 (0.0-0.012) X10*3/uL Nucleated RBC % (auto) 0.0 (0.0-0.2) /100WBC Sodium 133 L (135-145) mmol/L Potassium 3.9 (3.3-5.1) mmol/L Chloride 101 (96-108) mmol/L Carbon Dioxide 24 (22-29) mmol/L Anion Gap 12 (12-20) BUN 9 (9-16) mg/dL Creatinine 0.94 (0.5-1.4) mg/dL Estim Creat Clear Calc 140.1 Estimated GFR > 60 Random Glucose 135 H (60-115) mg/dL Calcium 8.5 D (8.4-10.2) mg/dL Total Bilirubin 0.9 (0.0-1.0) mg/dL AST 24 (5-37) U/L ALT 41 H (0-40) U/L Alkaline Phosphatase 70 (39-117) U/L Total Protein 6.1 L (6.5-8.0) g/dL Albumin 3.8 (3.5-5.0) g/dL Independent Interpretation I performed an independent interpretation of an: CT Scan Radiology Impression Discussion of test interpretation with radiology: I have reviewed the radiologist's reading. Radiologist Impression: [place] [id number] CT Scan Report Signed Patient: Kevyn Rendon MR#: [id number] : 1995 Acct:[id number] Age/Sex: 27 / M ADM Date: 07/26/23 Loc: .ED Attending Dr: Ordering Physician: Sundar Maza MD Date of Service: 07/26/23 Procedure(s): CT abdomen pelvis wo IV con Accession Number(s): [id number] cc: Physician,Unknown ; Sundar Maza MD~ EXAMINATION: CT ABDOMEN AND PELVIS WITHOUT CONTRAST CLINICAL INFORMATION: Left flank pain. COMPARISON: None available. TECHNIQUE: Multidetector volumetric imaging was performed from the superior aspect of the liver through the pubic symphysis. Sagittal and coronal reformatted images were obtained on the technologist's workstation. This CT examination was performed using dose optimization techniques as appropriate, variously including the following: *Automated exposure control *Adjustment of mA and/or kV according to patient size (this includes techniques or standardized protocols for targeted exams where dose is matched to indication/reason for exam; i.e. extremities or head) *Use of iterative reconstruction technique DLP: 628 mGy-cm FINDINGS: LUNG BASES: The visualized lung bases are unremarkable. LIVER, GALLBLADDER, AND BILIARY TREE: The liver is normal in size, shape, and attenuation. No focal hepatic lesion or biliary ductal dilatation is present. The gallbladder is unremarkable with no evidence of radiopaque gallstones, gallbladder wall thickening, or obvious pericholecystic inflammatory changes. PANCREAS: Unremarkable. SPLEEN: Unremarkable. ADRENAL GLANDS: Unremarkable. KIDNEYS AND URETERS: The kidneys are normal in size, shape, and attenuation. No hydronephrosis, hydroureter, or calculi seen. No perinephric stranding. BLADDER: Unremarkable. GASTROINTESTINAL TRACT: The appendix is dilated up to 1.4 cm with mild periappendiceal infiltrative change. The appendix extends into the pelvis just to the right of midline. There is minimal free fluid within the pelvis. ABDOMINAL WALL: No significant hernia is appreciated. LYMPH NODES: Normal. VASCULAR: Unremarkable. PELVIC VISCERA: Unremarkable. OSSEOUS STRUCTURES: Unremarkable. CT/CT abdomen pelvis wo IV con IMPRESSION: There is an apparent dilated appendix extending into the pelvis with mild surrounding infiltration. Suspect early appendicitis. The patient complained of left-sided pain. The atypical location of the appendix may explain this presentation. Minimal free fluid within the pelvis. Fleischner guidelines were followed. Dictated By: Gómez Kauffman Signed By: <Electronically signed by Gómez Kauffman in [place]> Medications Administered Generic Name Dose Route Start Last Admin Trade Name Freq PRN Reason Stop Dose Admin Hydromorphone HCl 0.25 mg 07/26/23 03:39 07/26/23 06:14 Hydromorphone Hcl 0.5 Mg/0.5 Ml Syringe IVPUSH 0.25 mg Q2H PRN Administration Pain, Moderate(Pain Scale 4-6) Protocol Lactated Ringer's 1,000 mls @ 125 mls/hr 07/26/23 03:45 07/26/23 04:08 Lr IVCONT 125 mls/hr .Q8H SHOLA Administration Discontinued Medications Generic Name Dose Route Start Last Admin Trade Name Freq PRN Reason Stop Dose Admin Sodium Chloride 1,000 mls @ 999 mls/hr 07/26/23 01:49 07/26/23 03:13 Ns IV 07/26/23 02:49 Infused .Q1H1M ONE Infusion Piperacillin Sod/Tazobactam 50 mls @ 100 mls/hr 07/26/23 03:22 07/26/23 04:39 Sod 3.375 gm/ Sodium Chloride IV 07/26/23 03:51 Infused ONCE ONE Infusion Ketorolac Tromethamine 30 mg 07/26/23 01:49 07/26/23 01:55 Ketorolac Tromethamine 30 Mg/Ml Vial IVPUSH 07/26/23 01:50 30 mg ONCE ONE Administration Morphine Sulfate 4 mg 07/26/23 01:49 07/26/23 01:55 Morphine Sulfate 4 Mg/Ml Cartridge IVPUSH 07/26/23 01:50 4 mg ONCE ONE Administration Protocol Ondansetron HCl 4 mg 07/26/23 01:44 07/26/23 01:47 Ondansetron Odt 4 Mg Tab.Rapdis TRANSLINGU 07/26/23 01:45 4 mg ONCE ONE Administration Discharge Plan Discharge Clinical Impression: Acute appendicitis Patient Disposition: Admitted As Inpatient
[2023-07-26] MEDS: Ondansetron ODT 4 MG TAB.RAPDIS TRANSLINGU (01:47)
[2023-07-26] MEDS: Morphine Sulfate 4 MG/ML CARTRIDGE IVPUSH (01:55)
[2023-07-26] MEDS: 0.9 % Sodium Chloride 1,000 ML 999 ML IV (01:55)
[2023-07-26] MEDS: Ketorolac Tromethamine 30 MG/ML VIAL IVPUSH (01:55)
[2023-07-26 02:01] LABS: Basophils Percent Auto 0.1 % (0-2); Hematocrit 38.8 % (42.0-52.0); Hemoglobin 13.6 g/dl (14.0-18.0); Imm Gran Abs Auto 0.02 X10*3/uL (0.00-0.03); Imm Gran Pct Auto 0.2 % (0.0-0.4); Lymphocytes Absolute Auto 1.2 X10*3/uL (1.2-4.9); Lymphocytes Percent Auto 11.4 % (20-40); MANUAL DIFF FLAG NO; Mean Corpuscular HGB Conc 35.1 g/dl (31.0-36.0); Mean Corpuscular Hemoglobin 29.2 pg (27.0-33.0); Mean Corpuscular Volume 83.3 fL (80.0-98.0); Mean Platelet Volume 9.5 fL (9.4-12.4); Monocytes Absolute Auto 0.6 X10*3/uL (0.1-1.2); Monocytes Percent Auto 6.1 % (2-11); Neutrophils Absolute Auto 8.7 x10*3/uL (2.0-8.3); Neutrophils Percent Auto 82.2 % (45-73); Platelet Count 200 X10*3/uL (160-400); Red Blood Count 4.66 X10*6/uL (4.60-5.80); Red Cell Distribution Width 11.9 % (11.0-16.0); White Blood Count 10.6 X10*3/uL (4.8-10.8)
[2023-07-26 02:14] LABS: Alanine Aminotransferase 41 U/L (0-40); Albumin Level 3.8 g/dL (3.5-5.0); Alkaline Phosphatase 70 U/L (39-117); Anion Gap 12 (12-20); Aspartate Amino Transferase 24 U/L (5-37); Bilirubin Total 0.9 mg/dL (0.0-1.0); Blood Urea Nitrogen 9 mg/dL (9-16); Calcium 8.5 mg/dL (8.4-10.2); Carbon Dioxide 24 mmol/L (22-29); Chloride 101 mmol/L (96-108); Creatinine Clr Calc Pharmacy 140.1; Estimated Glomerular Filt Rate > 60; Glucose Random 135 mg/dL (60-115); Potassium 3.9 mmol/L (3.3-5.1); Sodium 133 mmol/L (135-145); Total Protein 6.1 g/dL (6.5-8.0)
[2023-07-26] MEDS: Piperacillin Sodium/Tazobactam 3.375 GM in 0.9 % Sodium Chloride 50 ML IV ×3 (03:39→23:23)
--- NOTE | 2023-07-26 03:40 | MHC.EDTECH ---
This tech took over care of patient at 0300,hourly rounds,vitals and belonging list completed copy placed in chart. Temp 100.2 orally RAAF Villafana aware. Urine was obtained and sent to lab
--- NOTE | 2023-07-26 03:43 | P.HPGS_ITS ---
History of Present Illness History of Present Illness Date of Service: 07/26/23 Chief complaint: abdominal pain, abnormal CT abd Narrative: Kevyn Rendon is a 27 year old male with abdominal pain & 2 prior ER visits; CT shows enlargening appendix; wbc nml The patient is seen with his kanchaneCamila ([phone]) at the bedside in the patient requested I speak with her and answered her questions. The patient notes that he started to develop vague abdominal pain that is predominantly suprapubic as well as in the right lower quadrant. Reviewing the ER record, patient had a similar presentation in January of this year and CT demonstrated the appendix was 12 mm. Patient's white blood cell count was normal and the patient was discharged. Patient also presented in 08/2022 with similar complaints but is labs and CT were also normal. Patient's fiancee notes that this episode is the same as he complained about in January of this year and the patient concurred. Patient is adopted and does not know his family history. He denies any known chronic GI symptoms of diarrhea or rectal bleeding. He denies any unexplained weight loss. 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, [facility]) Alcohol intake: current Alcohol intake frequency: holidays/special occasions only Smoked in Last 30 Days: No Use of substances other than those prescribed or required for medical reasons: No Advance Directives: No Advance Directives Information Provided: No Meds Allergies Allergy/AdvReac Type Severity Reaction Status Date / Time No Known Allergies Allergy Verified 02/01/23 09:49 Active Medications: Current Medications Piperacillin Sod/Tazobactam (Sod 3.375 gm/ Sodium Chloride) 50 mls @ 100 mls/hr IV ONCE ONE Stop: 07/26/23 03:51 Last Admin: 07/26/23 03:39 Dose: 100 mls/hr Physical Exam Vital Signs: Vital Signs: Last Vital Signs Temp 100.2 F 07/26/23 03:39 Pulse 98 07/26/23 03:39 Resp 20 07/26/23 03:39 BP 118/63 07/26/23 03:39 Pulse Ox 100 07/26/23 03:39 O2 Del Method Room Air 07/26/23 03:39 BMI result Body Mass Index 28.5 The patient is non-toxic & in good spirits NC/AT, PERRLA, EOMI Mood, affect & judgment all appear appropriate Sclera anicteric conjunctiva pink and moist Oropharynx is clear with no aphthous ulcers, Mallampati class 2, mucous membranes moist Neck is supple with no masses, adenopathy or bruits Heart is regular, normal S1-S2 no rubs or murmurs Lungs are clear and equal anteriorly with no audible wheezing, rubs or dullness to percussion Abdomen is overweight with no demonstrable hernias. The patient has suprapubic and some right lower quadrant discomfort with no rebound, rigidity or guarding. No HSM, rebound, rigidity, guarding, masses or bruits are present. Rectal exam is deferred Skin has good turgor and is free of rashes Extremities free of cyanosis clubbing edema Results Results Labs: Short CBC 07/26/23 Range/Units 01:56 WBC 10.6 (4.8-10.8) X10*3/uL Hgb 13.6 L (14.0-18.0) g/dl Hct 38.8 L (42.0-52.0) % Plt Count 200 (160-400) X10*3/uL BMP 07/26/23 01:56 Sodium 133 L Potassium 3.9 Chloride 101 Carbon Dioxide 24 BUN 9 Creatinine 0.94 Calcium 8.5 D Liver Function 07/26/23 Range/Units 01:56 Total Bilirubin 0.9 (0.0-1.0) mg/dL AST 24 (5-37) U/L ALT 41 H (0-40) U/L Alkaline Phosphatase 70 (39-117) U/L Albumin 3.8 (3.5-5.0) g/dL Abdomen CT scan report/results: report reviewed and image reviewed CT scan - pelvis: report reviewed and image reviewed Additional studies: Note the pt's appendix is now 14mm (previously 10mm) vs 2 prior CTs at [facility] Assessment and Plan (1) Acute appendicitis: Status: Acute (2) Anemia: Status: Acute Plan admit NPO, IVF Changing appy on CT concerning for appendicitis vs neoplasm Recommend laparoscopic appendectomy. Will discuss options & risks with pt. 0730 I had a discussion with the patient and his fiancee, Camila, regarding his unusual presentation and evidence of appendix enlarging/dilating on CT scan as well as his newly diagnosed anemia of unclear etiology. We discussed medical versus surgical options and I recommended proceeding with a laparoscopic, possible open appendectomy with the inherent risks of bleeding, infection, need for open surgery, risk of negative exploration, risk of need for another procedure in the event of unexpected pathology, the possible need to change the operative plan if unexpected pathology is encountered and the patient seemed understand his options. The option of medical management with IV antibiotics was discussed but I explained that I did not endorse this given his changing appendix, possibility of neoplasm and eventual need for an operation. Patient seemed understand his options and wants to proceed. 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 Orders to have the patient be undressed, receive Ancef, 2 g IV on-call and have SCDs are in place. Activity restrictions, possible need for overnight admission and work restrictions were also reviewed and his questions seemed to be satisfactorily answered. Time is tentatively for 13:00 today Quality Stroke Does the patient have a stroke diagnosis?: No VTE Prior VTE?: No VTE Risk Level:: Surgical - moderate VTE Device Contraindication: N/A - Device Ordered VTE Drug Contraindication: Treatment Not Indicated Procedures Date of Service Date of Service: 07/26/23
[2023-07-26 03:53] LABS: Appearance Urine Clear; Color Urine Yellow; Glucose Urine UA Negative (Negative); Leukocyte Esterase Urine Negative (Negative); Nitrite Urine Negative (Negative); PH 6.5 (5.0-9.0); Urine Blood Negative (Negative); Urine Ketones Negative (Negative); Urine Protein Negative (Neg-Trace)
[2023-07-26] MEDS: Lactated Ringers 1,000 ML 125 ML IVCONT ×2 (04:08→17:59)
--- NOTE | 2023-07-26 06:13 | MHC.EDTECH ---
Hourly rounds and vitals completed,temp is 100.1 RN Broderick aware Patient ambulated to bathroom with a steady gait. Call mcmahan within reach.
[2023-07-26] MEDS: HYDROmorphone HCl 0.5 MG/0.5 ML SYRINGE 0.25 MG IVPUSH ×2 (06:14→17:05)
--- NOTE | 2023-07-26 07:36 | W.PM.OPN ---
Operative Note Operative Note Date of Service: 07/26/23 Narrative: Preop diagnosis: [Abnormal appendix on CT with recurrent abdominal pain] Postop diagnosis: [Perforated appendicitis with chronic right lower quadrant adhesions, peritonitis] Procedure: [Laparoscopic appendectomy, limited lysis of adhesions right lower quadrant] Surgeon: Donovan Conklin MD, [facility], [facility] Assist: [] Anesthesia: [GET, Marcaine, 0.25% with epi] Estimated blood loss: [3cc] Specimen: [1) Peritoneal fluid for Gram stain & culture; 2) appendix] Intraoperative findings: [Malodorous pus was demonstrated when the Veress needle was placed. Peritonitis with pus all for quadrant requiring extensive washout; chronic old adhesions in the right lower quadrant requiring limited lysis of adhesions to demonstrate the appendix. The appendix was perforated on the base with viable cecal tissue resected Drains: CAITY: midline in pelvis; RLQ CAITY along under the cecum up the right pericolic gutter up to over the liver] Indications: [The patient is a 27-year-old gentleman who denies significant past medical history and has an unknown family history due to adoption. He reports a past surgical history of some type of a hernia repair as a teenager. This is the patient's 3rd ER visit due to vague abdominal complaints and, on CT, his appendix is measured at 14 mm and steadily increasing in size. The possibility of appendicitis and neoplasm was discussed with the patient and I recommended a laparoscopic appendectomy or possible open appendectomy. I reviewed the inherent risks of bleeding, infection, need for open surgery, risk of negative exploration, risk of need for another procedure in the event of unexpected pathology or complication, the possible need to change the operative plan if unexpected pathology is encountered and the patient seemed understand his options. The option of medical management with IV antibiotics was discussed but I explained that I did not endorse this given his changing appendix, possibility of neoplasm and eventual need for an operation. The inherent risks were reviewed and his questions seemed to be satisfactorily answered. Patient seemed understand his options and wanted to proceed.] Procedure: [The patient was identified in the preoperative holding area and again in the operating room. An appropriate time-out was performed. The patient had voided bladder content checker, received subcu heparin and antibiotics per protocol. Sequential compression stockings were placed. The patient was induced in general endotracheal anesthesia administered with excellent effect. The abdomen was widely prepped and draped in the usual manner for surgery. Preemptive local was used at all trocar insertion sites. The abdomen was accessed using a Veress needle. A transverse supraumbilical incision was made, the Veress needle inserted with demonstration of malodorous purulence, an appropriate drop test performed and a pneumoperitoneum of 15 mmHg was obtained using carbon dioxide. Opening pressures were 6 mmHg. Next, the Veress needle was withdrawn and the abdomen was accessed through the incision with a 30 degree/5 mm laparoscoped over Optiview trocar technique without incident. Upon entering the abdomen, gross purulence was demonstrated throughout the abdomen. In examining the bowel & mesentary deep to the Veress needle, no evidence of injury was present. The remaining trocars were placed under direct laparoscopic vision with preemptive analgesia. The patient was then positioned in Trendelenburg, banked left. A Lukens trap was used to remove the purulence fluid to send for Gram stain and culture. Upon examining the colon, it was quite distended, and chronic scar tissue from the omentum to the right lower quadrant required a limited lysis of adhesions for 10 minutes to demonstrate the cecum. The appendix was pelvic in nature with a portion of its base retroperitoneal. The LigaSure was used to carefully dissect the mesoappendix down to the base of the appendix with gentle traction to avoid avulsion of the perforated appendix. Dissection was carried onto the cecal base. An Endo-JANELL 30 stapler, purple load, was placed across the appendiceal base on the cecum the and fired with good hemostasis and closure. The specimen was placed in an Endo-Catch bag and delivered through the 12 mm port in the left lower quadrant. Operative field was irrigated and inspected for hemostasis which was good. 2 L were required to obtain clear irrigant. Position changes and running of the small bowel using careful dissection to avoid injury and break up interloop abscesses was required. After aspirating the majority of the peritoneal irrigant, a CAITY was placed through a right lower quadrant incision and laid along the right pericolic gutter with the in for cecal area included. A 2nd CAITY was placed through the suprapubic 5 mm port and positioned in the pelvis. Patient was returned to neutral position, the abdomen deflated and the trocars removed. 12 mm fascia was closed with 0- Polysorb and skin closed with 4-0 Monocryl subcuticular sutures. The abdomen was washed and dried, Mastisol and Steri-Strips applied followed by Band-Aids. Patient tolerated the procedure well and was sent to the recovery in stable condition. All sponge instrument counts were correct. At the patient's request, I spoke with his parents & Camila zavala post-op regarding the operation and plan. The need for antibiotics, bacterial identification and sensitivities were addressed. Patient's fiancee and noted that he had been taking laxatives which explains the distended colon encountered. Their questions seemed to be satisfactorily answered. His fiancee cell: [phone]
[2023-07-26] MEDS: Acetaminophen 325 MG TABLET 975 MG PO (07:51)
--- NOTE | 2023-07-26 08:15 | PHA.MEDREC ---
Pharmacy Consult ? Medication Reconciliation Pharmacy has completed the medication reconciliation. PT STATES ONLY ON ONE MEDICATION AND NO OTC MEDICATIONS AT HOME.
--- NOTE | 2023-07-26 09:43 | MHC.CM.PN ---
Addendum entered by Renée Camarillo RN 07/26/23 09:55: PCP IS AT [facility] IN [place], [place] Original Note: PATIENT IS FULLY INDEPENDENT WITH ALL ADLS. NO DME OR VNA SERVICES. PLAN IS FOR [facility] ([facility] AT THIS TIME) WILL TRANSPORT PATIENT HOME WHEN READY
--- NOTE | 2023-07-26 14:45 | HO.ANESPROP2 ---
[facility], [facility] Active Problems Active Problems: All Active Problems (Updated 07/26/23 @ 07:32 by Donovan Conklin MD, FACS, [facility]) Anemia (Acute) Acute appendicitis (Acute) Past Medical History Functional capacity: independent ambulation Family History Family history of problems with anesthesia: No Surgical History History of Problems with Anesthesia: No Social History Social History Alcohol intake: current Alcohol intake frequency: holidays/special occasions only Patient Tobacco Use Status: Never used Tobacco Second Hand Smoke Exposure: No service: No Meds Allergies Allergy/AdvReac Type Severity Reaction Status Date / Time No Known Allergies Allergy Verified 02/01/23 09:49 Active Medications: Current Medications Acetaminophen (Acetaminophen 325 Mg Tablet) 975 mg PO Q6H PRN PRN Reason: Pain, Mild (Pain Scale 1-3) Last Admin: 07/26/23 07:51 Dose: 975 mg Hydromorphone HCl (Hydromorphone Hcl 0.5 Mg/0.5 Ml Syringe) 0.25 mg IVPUSH Q2H PRN; Protocol PRN Reason: Pain, Moderate(Pain Scale 4-6) Last Admin: 07/26/23 06:14 Dose: 0.25 mg Lactated Ringer's (Lr) 1,000 mls @ 125 mls/hr IVCONT .Q8H [facility] Last Admin: 07/26/23 04:08 Dose: 125 mls/hr Ondansetron HCl (Ondansetron Hcl 4 Mg/2 Ml Vial) 4 mg IVPUSH Q6H PRN PRN Reason: Nausea and Vomiting Home Medications Medication Instructions Recorded Confirmed Last Taken Type metoprolol succinate 25 mg 25 mg PO DAILY 07/26/23 07/26/23 Unknown History tablet,extended release 24 hr Exam Exam Date and Time: July 26, 2023 1445 Height,Weight and Vital Signs: Height 6 ft Weight 95.254 kg Last Vital Signs Temp 100.7 F H 07/26/23 12:11 Pulse 91 07/26/23 12:11 Resp 16 07/26/23 12:11 BP 107/59 L 07/26/23 12:11 Pulse Ox 98 07/26/23 12:11 O2 Del Method Room Air 07/26/23 12:11 Pertinent Lab Results Pertinent Lab Results: Laboratory Tests 07/26/23 07/26/23 01:56 03:43 WBC 10.6 RBC 4.66 Hgb 13.6 L Hct 38.8 L MCV 83.3 MCH 29.2 MCHC 35.1 RDW 11.9 Plt Count 200 MPV 9.5 Immature Gran % (Auto) 0.2 Neut % (Auto) 82.2 H Lymph % (Auto) 11.4 L [place] % (Auto) 6.1 Eos % (Auto) 0.0 Baso % (Auto) 0.1 Lymph # (Auto) 1.2 [place] # (Auto) 0.6 Eos # (Auto) 0.0 Baso # (Auto) 0.0 Abs Immat Gran (auto) 0.02 Absolute Neuts (auto) 8.7 H Absolute Nucleated RBC 0.000 Nucleated RBC % (auto) 0.0 Sodium 133 L Potassium 3.9 Chloride 101 Carbon Dioxide 24 Anion Gap 12 BUN 9 Creatinine 0.94 Estim Creat Clear Calc 140.1 Estimated GFR > 60 Random Glucose 135 H Calcium 8.5 D Total Bilirubin 0.9 AST 24 ALT 41 H Alkaline Phosphatase 70 Total Protein 6.1 L Albumin 3.8 Urine Color Yellow Urine Appearance Clear Urine pH 6.5 Ur Specific [place] 1.020 Urine Protein Negative Urine Glucose (UA) Negative Urine Ketones Negative Urine Blood Negative Urine Nitrite Negative Ur Leukocyte Esterase Negative Airway Mallampati Class: II TM Dist: >3cm Neck ROM: Full Heart: Tachycardic Lungs: CTA Assessment and Plan Assessment Anesthesia Assessment: Anesthesia Plan Discussed Final Anesthetic Review Family History of Problems with Anesthesia: No History of Problems with Anesthesia: No NPO: Yes ASA Class: II and Emergency Final Preanesthetic Review: Meds/Allgs Chart Reviewed, Consent Obtained/Reviewed and Anes Risks/Benef Reviewed Patient Risk: Low Procedure Risk: Low Anesthetic Plan Anesthetic Plan: GA Disposition: Standard PACU
[2023-07-27] MEDS: HYDROmorphone HCl 0.5 MG/0.5 ML SYRINGE 0.25 MG IVPUSH ×3 (00:20→15:01)
[2023-07-27] MEDS: Lactated Ringers 1,000 ML 125 ML IVCONT ×3 (01:13→15:05)
[2023-07-27 03:06] VITALS: BP 114/57; PULSE 84; RESP 16; TEMP 37.2; O2SAT 94
[2023-07-27] MEDS: Piperacillin Sodium/Tazobactam 3.375 GM in 0.9 % Sodium Chloride 50 ML IV ×4 (05:40→23:01)
[2023-07-27 08:00] VITALS: BP 107/53; PULSE 88; RESP 17; TEMP 37.3; O2SAT 95
[2023-07-27] MEDS: Metoprolol Succinate ER 25 MG TAB.ER.24H PO (08:00)
[2023-07-27] MEDS: Acetaminophen 325 MG TABLET 975 MG PO (08:11)
--- NOTE | 2023-07-27 08:15 | PM.PNGS ---
Subjective Subjective Date of Service: 07/27/23 Patient reports: no new complaints, feels better and flatus Interval history: The patient reports that he is doing better than yesterday and is having a little flatus. He is hungry. His fiancee, Camila, is at the bedside. We did discuss the need to identify his metoprolol dose and whether it is an extended release verses immediate release. Patient denies any headache, visual changes, chest pain or palpitations. He further denies any difficulty breathing and shortness of breath. He reports expected abdominal pain with no nausea nor vomiting. Physical Exam Vital Signs: Vital Signs: Last Vital Signs Temp 99.2 F 07/27/23 08:00 Pulse 88 07/27/23 08:00 Resp 17 07/27/23 08:00 BP 107/53 L 07/27/23 08:00 Pulse Ox 95 07/27/23 08:00 O2 Del Method Room Air 07/27/23 08:00 O2 Flow Rate 2 07/26/23 17:10 BMI result Body Mass Index 28.5 On exam, the patient is anicteric and nontoxic He is having no respiratory distress His abdomen is little distended, has appropriate incisional tenderness and serosanguineous drainage in both the pelvic and right paracolic gutter CAITY. Objective Data Active Medications Acetaminophen (Acetaminophen 325 Mg Tablet) 975 mg PO Q6H PRN PRN Reason: Pain, Mild (Pain Scale 1-3) Last Admin: 07/27/23 08:11 Dose: 975 mg Documented By: EVA Fentanyl (Fentanyl Citrate/Pf 100 Mcg/2 Ml Vial) 25 mcg IVPUSH Q5M PRN; Protocol PRN Reason: Pain, Moderate(Pain Scale 4-6) Hydromorphone HCl (Hydromorphone Hcl 0.5 Mg/0.5 Ml Syringe) 0.25 mg IVPUSH Q2H PRN; Protocol PRN Reason: Pain, Moderate(Pain Scale 4-6) Last Admin: 07/27/23 06:18 Dose: 0.25 mg Documented By: MADHU Hydromorphone HCl (Hydromorphone Hcl 0.5 Mg/0.5 Ml Syringe) 0.25 mg IVPUSH Q5M PRN; Protocol PRN Reason: Pain, Severe (Pain Scale 7-10) Last Admin: 07/26/23 17:05 Dose: 0.25 mg Documented By: TJ Lactated Ringer's (Lr) 1,000 mls @ 100 mls/hr IVCONT .Q10H [facility] Last Admin: 07/27/23 08:00 Dose: 125 mls/hr Documented By: EVA Piperacillin Sod/Tazobactam (Sod 3.375 gm/ Sodium Chloride) 50 mls @ 100 mls/hr IV Q6H [facility] Last Infusion: 07/27/23 06:15 Dose: Infused Documented By: CADEILOnofre Metoprolol Succinate (Metoprolol Succinate Er 25 Mg Tab.Er.24h) 25 mg PO DAILY [facility]; Protocol Last Admin: 07/27/23 08:00 Dose: 25 mg Documented By: EVA Ondansetron HCl (Ondansetron Hcl 4 Mg/2 Ml Vial) 4 mg IVPUSH Q6H PRN PRN Reason: Nausea and Vomiting Ondansetron HCl (Ondansetron Hcl 4 Mg/2 Ml Vial) 4 mg IVPUSH ONCE PRN PRN Reason: Nausea and Vomiting Labs 07/26/23 01:56 07/26/23 01:56 Microbiology Microbiology Results: Microbiology 07/26/23 Unknown Gram Stain - Final Peritoneal Fluid Procedures Date of Service Date of Service: 07/27/23 Progress Note: A&P Assessment and plan (1) Perforated appendicitis: Status: Acute (2) Peritonitis: Status: Acute (3) H/O cardiac radiofrequency ablation: Status: Acute (4) Anemia: Status: Acute Plan Gram-positive cocci noted on Gram stain, culture and sensitivities pending. Continue Zosyn; decrease IVF to 100 cc/hour; advanced to full liquids. Patient's fiancee will obtain information regarding his beta-rosanna. The extend release has been ordered and the patient is having no evidence of beta-rosanna withdrawal. He is not sure what type of tachycardia he had ablated and there is questioned as to how compliant he has been with his beta-rosanna but he has no evidence of instability regarding this matter that would require cardiology input at this time. Will continue to monitor. Labs pending. Time Spent With Patient Time: Total time managing care of this patient today ____ minutes. Quality Stroke Does the patient have a stroke diagnosis?: No VTE Prior VTE?: No VTE Risk Level:: Surgical - moderate VTE Device Contraindication: N/A - Device Ordered VTE Drug Contraindication: Treatment Not Indicated
[2023-07-27 09:25] LABS: MANUAL DIFF FLAG NO
[2023-07-27 09:32] LABS: Basophils Percent Auto 0.3 % (0-2); Eosinophils Percent Auto 0.1 % (0-4); Hematocrit 36.2 % (42.0-52.0); Hemoglobin 12.2 g/dl (14.0-18.0); Imm Gran Abs Auto 0.05 X10*3/uL (0.00-0.03); Imm Gran Pct Auto 0.5 % (0.0-0.4); Lymphocytes Absolute Auto 1.3 X10*3/uL (1.2-4.9); Lymphocytes Percent Auto 12.8 % (20-40); Mean Corpuscular HGB Conc 33.7 g/dl (31.0-36.0); Mean Corpuscular Hemoglobin 29.5 pg (27.0-33.0); Mean Corpuscular Volume 87.7 fL (80.0-98.0); Mean Platelet Volume 9.7 fL (9.4-12.4); Monocytes Absolute Auto 0.7 X10*3/uL (0.1-1.2); Neutrophils Absolute Auto 8.1 x10*3/uL (2.0-8.3); Neutrophils Percent Auto 79.3 % (45-73); Platelet Count 175 X10*3/uL (160-400); Red Blood Count 4.13 X10*6/uL (4.60-5.80); Red Cell Distribution Width 12.5 % (11.0-16.0); White Blood Count 10.2 X10*3/uL (4.8-10.8)
[2023-07-27 09:33] VITALS: TEMP 36.8
[2023-07-27 09:46] LABS: Anion Gap 7 (12-20); Blood Urea Nitrogen 8 mg/dL (9-16); Calcium 9.1 mg/dL (8.4-10.2); Carbon Dioxide 27 mmol/L (22-29); Chloride 108 mmol/L (96-108); Creatinine Clr Calc Pharmacy 141.5; Estimated Glomerular Filt Rate > 60; Glucose Random 115 mg/dL (60-115); Sodium 138 mmol/L (135-145)
[2023-07-27] MEDS: Ketorolac Tromethamine 15 MG/ML VIAL IVPUSH ×3 (10:43→22:57)
[2023-07-27] MEDS: Calcium Carbonate 750 MG TAB.CHEW PO ×2 (15:35→19:46)
[2023-07-27 15:58] VITALS: BP 117/62; PULSE 88; RESP 18; TEMP 36.9; O2SAT 96
[2023-07-27] MEDS: Famotidine 20 MG TABLET PO (16:07)
[2023-07-27 19:32] VITALS: BP 137/74; PULSE 84; RESP 18; TEMP 36.9; O2SAT 93
[2023-07-27] MEDS: Melatonin 3 MG TABLET 6 MG PO (22:06)
[2023-07-27] MEDS: ondansetron HCL 4 MG/2 ML VIAL IVPUSH (22:23)
[2023-07-28] VITALS (7 sets, daily range): BP systolic 131–147; BP diastolic 66–80; PULSE 68–72; RESP 17–18; TEMP 36.5–37.1; O2SAT 88–93
[2023-07-28] MEDS: Lactated Ringers 1,000 ML 125 ML IVCONT (03:13)
[2023-07-28] MEDS: Ketorolac Tromethamine 15 MG/ML VIAL IVPUSH ×3 (05:20→17:49)
[2023-07-28] MEDS: Piperacillin Sodium/Tazobactam 3.375 GM in 0.9 % Sodium Chloride 50 ML IV ×3 (05:24→17:49)
[2023-07-28 05:26] LABS: MANUAL DIFF FLAG NO
[2023-07-28 05:30] LABS: Basophils Percent Auto 0.3 % (0-2); Eosinophils Absolute Auto 0.1 X10*3/uL (0.0-0.4); Eosinophils Percent Auto 1.2 % (0-4); Hematocrit 34.9 % (42.0-52.0); Hemoglobin 11.7 g/dl (14.0-18.0); Imm Gran Abs Auto 0.03 X10*3/uL (0.00-0.03); Imm Gran Pct Auto 0.3 % (0.0-0.4); Lymphocytes Absolute Auto 1.6 X10*3/uL (1.2-4.9); Lymphocytes Percent Auto 17.9 % (20-40); Mean Corpuscular HGB Conc 33.5 g/dl (31.0-36.0); Mean Corpuscular Hemoglobin 29.3 pg (27.0-33.0); Mean Corpuscular Volume 87.5 fL (80.0-98.0); Monocytes Absolute Auto 0.7 X10*3/uL (0.1-1.2); Monocytes Percent Auto 7.4 % (2-11); Neutrophils Absolute Auto 6.6 x10*3/uL (2.0-8.3); Neutrophils Percent Auto 72.9 % (45-73); Platelet Count 186 X10*3/uL (160-400); Red Blood Count 3.99 X10*6/uL (4.60-5.80); Red Cell Distribution Width 12.4 % (11.0-16.0); White Blood Count 9.1 X10*3/uL (4.8-10.8)
[2023-07-28 05:46] LABS: Anion Gap 11 (12-20); Blood Urea Nitrogen 9 mg/dL (9-16); Carbon Dioxide 26 mmol/L (22-29); Chloride 107 mmol/L (96-108); Estimated Glomerular Filt Rate > 60; Glucose Random 94 mg/dL (60-115); Potassium 3.9 mmol/L (3.3-5.1); Sodium 140 mmol/L (135-145)
--- NOTE | 2023-07-28 07:28 | PM.PNGS ---
Subjective Subjective Date of Service: 07/28/23 Patient reports: feels better, bowel movement and vomiting Interval history: The patient is seen and notes that he is really not taking in much p.o.. He feels a little bloated in spite of his bowel movements and had an episode of vomiting. He needs to have a bowel movement & we spoke briefly as he was headed into the bathroom, but otherwise denies palpitations, shortness of breath, chest pain, dizziness or lightheadedness. He denies minimal pain and reports best pain relief from Toradol and Tylenol. He wants to avoid narcotics if at all possible. Physical Exam Vital Signs: Vital Signs: Last Vital Signs Temp 98.6 F 07/28/23 03:57 Pulse 72 07/28/23 03:57 Resp 18 07/28/23 03:57 BP 131/66 07/28/23 03:57 Pulse Ox 93 07/28/23 03:57 O2 Del Method Room Air 07/28/23 03:57 O2 Flow Rate 2 07/26/23 17:10 BMI result Body Mass Index 28.5 On exam, the patient is in good spirits but does look tired He is having no respiratory distress He was seen standing in route to the toilet. I will return to assess his CAITY drains I have written a nursing order to empty the drains this morning and trend the output over the next 4-5 hours. Objective Data Active Medications Acetaminophen (Acetaminophen 325 Mg Tablet) 975 mg PO Q6H PRN PRN Reason: Pain, Mild (Pain Scale 1-3) Last Admin: 07/27/23 08:11 Dose: 975 mg Documented By: EVA Calcium Carbonate (Calcium Carbonate 750 Mg Tab.Chew) 750 mg PO Q4H PRN PRN Reason: GI Upset Last Admin: 07/27/23 19:46 Dose: 750 mg Documented By: SADIE Famotidine (Famotidine 20 Mg Tablet) 20 mg PO DAILY PRN PRN Reason: GERD Last Admin: 07/27/23 16:07 Dose: 20 mg Documented By: EVA Fentanyl (Fentanyl Citrate/Pf 100 Mcg/2 Ml Vial) 25 mcg IVPUSH Q5M PRN; Protocol PRN Reason: Pain, Moderate(Pain Scale 4-6) Hydromorphone HCl (Hydromorphone Hcl 0.5 Mg/0.5 Ml Syringe) 0.25 mg IVPUSH Q2H PRN; Protocol PRN Reason: Pain, Moderate(Pain Scale 4-6) Last Admin: 07/27/23 15:01 Dose: 0.25 mg Documented By: EVA Hydromorphone HCl (Hydromorphone Hcl 0.5 Mg/0.5 Ml Syringe) 0.25 mg IVPUSH Q5M PRN; Protocol PRN Reason: Pain, Severe (Pain Scale 7-10) Last Admin: 07/26/23 17:05 Dose: 0.25 mg Documented By: TJ Lactated Ringer's (Lr) 1,000 mls @ 100 mls/hr IVCONT .Q10H [facility] Last Admin: 07/28/23 03:13 Dose: 125 mls/hr Documented By: SADIE Piperacillin Sod/Tazobactam (Sod 3.375 gm/ Sodium Chloride) 50 mls @ 100 mls/hr IV Q6H [facility] Last Infusion: 07/28/23 06:08 Dose: Infused Documented By: SADIE Ketorolac Tromethamine (Ketorolac Tromethamine 15 Mg/Ml Vial) 15 mg IVPUSH Q6H PRN PRN Reason: Pain, Mild (Pain Scale 1-3) Last Admin: 07/28/23 05:20 Dose: 15 mg Documented By: SADIE Melatonin (Melatonin 3 Mg Tablet) 6 mg PO BEDTIME PRN PRN Reason: Insomnia Last Admin: 07/27/23 22:06 Dose: 6 mg Documented By: BENI Metoprolol Succinate (Metoprolol Succinate Er 25 Mg Tab.Er.24h) 25 mg PO DAILY [facility]; Protocol Last Admin: 07/27/23 08:00 Dose: 25 mg Documented By: EVA Ondansetron HCl (Ondansetron Hcl 4 Mg/2 Ml Vial) 4 mg IVPUSH Q6H PRN PRN Reason: Nausea and Vomiting Last Admin: 07/27/23 22:23 Dose: 4 mg Documented By: BENI Ondansetron HCl (Ondansetron Hcl 4 Mg/2 Ml Vial) 4 mg IVPUSH ONCE PRN PRN Reason: Nausea and Vomiting Labs 07/28/23 05:04 07/28/23 05:04 Labs: Laboratory Results - last 24 hr 07/27/23 07/28/23 09:21 05:04 MCV 87.7 87.5 MCH 29.5 29.3 MCHC 33.7 33.5 RDW 12.5 12.4 Plt Count 175 186 MPV 9.7 10.0 Immature Gran % (Auto) 0.5 H 0.3 Neut % (Auto) 79.3 H 72.9 Lymph % (Auto) 12.8 L 17.9 L [place] % (Auto) 7.0 7.4 Eos % (Auto) 0.1 1.2 Baso % (Auto) 0.3 0.3 Lymph # (Auto) 1.3 1.6 [place] # (Auto) 0.7 0.7 Eos # (Auto) 0.0 0.1 Baso # (Auto) 0.0 0.0 Abs Immat Gran (auto) 0.05 H 0.03 Absolute Neuts (auto) 8.1 6.6 Absolute Nucleated RBC 0.000 0.000 Nucleated RBC % (auto) 0.0 0.0 Anion Gap 7 L 11 L Estim Creat Clear Calc 141.5 140.0 Estimated GFR > 60 > 60 Random Glucose 115 94 Calcium 9.1 D 9.0 GPC were identified on Gram stain of peritoneal fluid/ Microbiology Microbiology Results: Microbiology 07/26/23 Unknown Gram Stain - Final Peritoneal Fluid Routine Culture - Preliminary No growth to date. Anaerobic Culture - Preliminary No growth to date. Procedures Date of Service Date of Service: 07/28/23 Progress Note: A&P Assessment and plan (1) Perforated appendicitis: Status: Acute (2) Anemia: Status: Acute (3) Peritonitis: Status: Acute (4) H/O cardiac radiofrequency ablation: Status: Acute Plan The patient's Camila zavala, texted me that he is on metoprolol ER, 25 mg tablet per day as he has been prescribed here. He seems stable from the cardiac ablation/tachycardia concern. Patient is having bowel movements but also an episode of vomiting and notes that he really does not feel like eating. I reassured him that this is very common with diffuse peritonitis. Will hold his diet for the time being on full liquids and I will return to reassess his CAITY drain totals and his clinical status. Patient and his firoele note that he took significant a number of laxatives since he was obstipated and this may be contributing to his nausea as well. Decrease IV fluid and continue to trend labs/physical exam. Intraoperative cultures demonstrated GPC but there is no growth to date. While cultures and sensitivities would be ideal, this finding is suggestive of an Enterococcus that is sensitive to Zosyn and should be sensitive to Augmentin. Time Spent With Patient Time: Total time managing care of this patient today ____ minutes. Quality Stroke Does the patient have a stroke diagnosis?: No VTE Prior VTE?: No VTE Risk Level:: Surgical - moderate VTE Device Contraindication: N/A - Device Ordered VTE Drug Contraindication: Treatment Not Indicated
[2023-07-28] MEDS: Metoprolol Succinate ER 25 MG TAB.ER.24H PO (08:27)
--- NOTE | 2023-07-28 10:19 | HO.POSTANES ---
Post Anesthesia Evaluation Post Anesthesia Evaluation Date of Service: 07/28/23 Vital Signs: Vital Signs Temp Pulse Resp BP Pulse Ox O2 Del Method 07/28/23 09:09 92 Room Air 07/28/23 08:00 97.7 F 70 17 133/74 91 L Room Air 07/28/23 03:57 98.6 F 72 18 131/66 93 Room Air Anesthesia: General Endotracheal-GETA Mental Status: Awake Pain Control: Satisfactory Nausea/Vomiting: None Hydration: Adequate Anesthesia-Related Issues: No Anes. Related Issues
[2023-07-28] MEDS: Lactated Ringers 1,000 ML 70 ML IVCONT (11:49)
--- NOTE | 2023-07-28 13:25 | MHC.CLN ---
NUTRITION CHANGED SUPPLEMENT TO ENSURE MAX TID. PROVIDES 450 KCALS, 90 G PROTEIN. DIET=FULL LIQUIDS.
[2023-07-28] MEDS: Acetaminophen 325 MG TABLET 975 MG PO (20:17)
[2023-07-28] MEDS: Melatonin 3 MG TABLET 6 MG PO (21:49)
--- NOTE | 2023-07-28 23:34 | PC.NURSE ---
Patient assessed, lungs lower lobes diminish, unable to take deep breaths due to abd discomfort. Is using IS as ordered, O2 sat 87-88 percent on RA. An order for oxygen obtained, applied, patient states improvement in breathing, O2 sat 91 percent on 2 liters. Report given to receiving nurse.
[2023-07-29] VITALS (10 sets, daily range): BP systolic 140–142; BP diastolic 73–78; PULSE 56–62; RESP 14–18; TEMP 36.7–37.7; O2SAT 90–94
[2023-07-29] MEDS: Piperacillin Sodium/Tazobactam 3.375 GM in 0.9 % Sodium Chloride 50 ML IV ×5 (00:03→22:57)
[2023-07-29] MEDS: Ketorolac Tromethamine 15 MG/ML VIAL IVPUSH (00:03)
[2023-07-29] MEDS: Lactated Ringers 1,000 ML 70 ML IVCONT (03:29)
[2023-07-29] MEDS: HYDROmorphone HCl 0.5 MG/0.5 ML SYRINGE 0.25 MG IVPUSH ×2 (04:53→08:05)
--- NOTE | 2023-07-29 05:10 | PC.NURSE ---
PATIENT POD #2A/O X3, VSS, HOWEVER, PATIENT HAD OXYGEN APPLIED AT SHIFT CHANGE DUE TO SAT READING 87-89% AT 2 LITERS N/C. SATS 89-90%, LUNG BURCIAGA DIM, VOIDING TO BEDSIDE URINAL, RIGHT, MID, AND DRESSINGS AT DRAIN SITES ALL C-D-I. 2 CAITY DRAINS WITH MINIMAL SANG DRNG. PT TAKING SIPS OF WATER, NO N/V. MEDICATED WITH TORADOL FOR PAIN AT 0010, SPLINTING AND INCENTIVE SPIROMETER ENCOURAGED. PT STATING PAINFUL TO USE AND TAKE DEEP BREATH. SATS REMAINED 90% AFTER INCREASE TO 3 LITERS, THEN 92% ON 4. IVF LR INFUSING AT 70ML/HR, IV ZOSYN ORDERED. BS ARE HYPOACTIVE RLQ OTHERWISE WNL. DRESSING MONITORED AND ALSO DRAIN OUTPUT WITH NO CHANGES. INCENTIVE DONE TO 3022-5912. NURSING MOLDING SUPERVISOR ALERTED AND THEN ALSO TO HOB MACHINE OPERATOR GEN SURGEON DR. TRACY AT 0420 WITH COMPLETE UPDATE ON PAIN, VITALS, O2 ORDER JUST AT SHIFT CHANGE BY DR AWAD AND PREVIOUS RN, AND NEED OF 4 LITERS TO MAINTAIN 92%. 98.1-62-16-140/78 AND RESPONSE WAS OKAY NOTHING TO ADD FROM . MONITORED FREQUENTLY, REPOSITIONED, WATER GIVEN, TV ON, FEMALE AT BEDSIDE RESTING, AND PT WISHING TO TRY PAIN MEDICATIONS TO HELP EASE DISCOMFORT AND DEEP BREATH. DISCUSSED WITH NSG MOLDING SUPERVISOR AND ADMINISTERED DILAUDID 0.25MG AT 0455 FOR STATED 7/10 PAIN. WILL CONTINUE TO MONITOR CLOSELY.
--- NOTE | 2023-07-29 06:31 | PC.NURSE ---
PAIN MEDICINE WITH GOOD EFFECT, TAKING FLUIDS, O2 SAT 94% ON 4 LITERS OF OXYGEN., CONTINUE TO MONITOR
[2023-07-29] MEDS: Acetaminophen 325 MG TABLET 975 MG PO ×2 (08:04→22:58)
[2023-07-29] MEDS: Metoprolol Succinate ER 25 MG TAB.ER.24H PO (08:04)
--- NOTE | 2023-07-29 12:13 | PM.PNGS ---
Subjective Subjective Date of Service: 07/29/23 Interval history: Uneventful evening. Incisional discomfort improving. Minimal output from CAITY drains. Tolerating liquid diet. Physical Exam Vital Signs: Vital Signs: Last Vital Signs Temp 98.2 F 07/29/23 09:25 Pulse 60 07/29/23 07:04 Resp 18 07/29/23 07:04 BP 141/73 H 07/29/23 07:04 Pulse Ox 93 07/29/23 09:25 O2 Del Method Room Air 07/29/23 09:25 O2 Flow Rate 4 07/29/23 07:04 BMI result Body Mass Index 28.5 GI: Other: Abdomen soft. Dressings clean dry and intact. CAITY drain serous output minimal. Drains uneventfully removed. Dressings applied. Objective Data Active Medications Acetaminophen (Acetaminophen 325 Mg Tablet) 975 mg PO Q6H PRN PRN Reason: Pain, Mild (Pain Scale 1-3) Last Admin: 07/29/23 08:04 Dose: 975 mg Documented By: DEBRA Calcium Carbonate (Calcium Carbonate 750 Mg Tab.Chew) 750 mg PO Q4H PRN PRN Reason: GI Upset Last Admin: 07/27/23 19:46 Dose: 750 mg Documented By: SADIE Famotidine (Famotidine 20 Mg Tablet) 20 mg PO DAILY PRN PRN Reason: GERD Last Admin: 07/27/23 16:07 Dose: 20 mg Documented By: EVA Fentanyl (Fentanyl Citrate/Pf 100 Mcg/2 Ml Vial) 25 mcg IVPUSH Q5M PRN; Protocol PRN Reason: Pain, Moderate(Pain Scale 4-6) Hydromorphone HCl (Hydromorphone Hcl 0.5 Mg/0.5 Ml Syringe) 0.25 mg IVPUSH Q2H PRN; Protocol PRN Reason: Pain, Moderate(Pain Scale 4-6) Last Admin: 07/29/23 08:05 Dose: 0.25 mg Documented By: DEBRA Hydromorphone HCl (Hydromorphone Hcl 0.5 Mg/0.5 Ml Syringe) 0.25 mg IVPUSH Q5M PRN; Protocol PRN Reason: Pain, Severe (Pain Scale 7-10) Last Admin: 07/26/23 17:05 Dose: 0.25 mg Documented By: HO.DANGELL Piperacillin Sod/Tazobactam (Sod 3.375 gm/ Sodium Chloride) 50 mls @ 100 mls/hr IV Q6H [facility] Last Admin: 07/29/23 11:39 Dose: 100 mls/hr Documented By: DEBRA Ketorolac Tromethamine (Ketorolac Tromethamine 15 Mg/Ml Vial) 15 mg IVPUSH Q6H PRN PRN Reason: Pain, Mild (Pain Scale 1-3) Last Admin: 07/29/23 00:03 Dose: 15 mg Documented By: CHERI Melatonin (Melatonin 3 Mg Tablet) 6 mg PO BEDTIME PRN PRN Reason: Insomnia Last Admin: 07/28/23 21:49 Dose: 6 mg Documented By: DANA Metoprolol Succinate (Metoprolol Succinate Er 25 Mg Tab.Er.24h) 25 mg PO DAILY [facility]; Protocol Last Admin: 07/29/23 08:04 Dose: 25 mg Documented By: DEBRA Ondansetron HCl (Ondansetron Hcl 4 Mg/2 Ml Vial) 4 mg IVPUSH Q6H PRN PRN Reason: Nausea and Vomiting Last Admin: 07/27/23 22:23 Dose: 4 mg Documented By: BENI Ondansetron HCl (Ondansetron Hcl 4 Mg/2 Ml Vial) 4 mg IVPUSH ONCE PRN PRN Reason: Nausea and Vomiting Labs 07/28/23 05:04 07/28/23 05:04 Microbiology Microbiology Results: Microbiology 07/26/23 Unknown Gram Stain - Final Peritoneal Fluid Routine Culture - Preliminary Culture in progress. Anaerobic Culture - Preliminary Culture in progress. Procedures Date of Service Date of Service: 07/29/23 Progress Note: A&P Assessment and plan (1) Perforated appendicitis: Status: Acute (2) Peritonitis: Status: Acute Plan Patient does not feel is ready for home yet. Advanced diet as tolerated, PO analgesia, out of bed/ambulate, incentive spirometry. Time Spent With Patient Time: Total time managing care of this patient today ____ minutes. Quality Stroke Does the patient have a stroke diagnosis?: No VTE Prior VTE?: No VTE Risk Level:: Surgical - moderate VTE Device Contraindication: N/A - Device Ordered VTE Drug Contraindication: Treatment Not Indicated
[2023-07-29] MEDS: oxyCODONE HCl Immed Release 5 MG TABLET PO ×3 (13:19→22:58)
[2023-07-30 03:00] VITALS: BP 164/93; PULSE 78; RESP 18; TEMP 36.4; O2SAT 94
[2023-07-30] MEDS: Piperacillin Sodium/Tazobactam 3.375 GM in 0.9 % Sodium Chloride 50 ML IV (06:05)
[2023-07-30] MEDS: Acetaminophen 325 MG TABLET 975 MG PO (06:07)
[2023-07-30 07:42] VITALS: BP 172/107; PULSE 76; RESP 16; TEMP 36.3; O2SAT 98
[2023-07-30] MEDS: Metoprolol Succinate ER 25 MG TAB.ER.24H PO (07:49)
[2023-07-30 08:54] VITALS: BP 112/62
--- NOTE | 2023-07-30 11:04 | PM.PNGS ---
Subjective Subjective Date of Service: 07/30/23 Interval history: Doing well. Uneventful evening. Patient is ambulating. Tolerating his diet. Passing flatus. He wishes to be discharged home. Physical Exam Vital Signs: Vital Signs: Last Vital Signs Temp 97.3 F 07/30/23 07:42 Pulse 76 07/30/23 07:42 Resp 16 07/30/23 07:42 BP 112/62 07/30/23 08:54 Pulse Ox 98 07/30/23 07:42 O2 Del Method Room Air 07/30/23 07:42 O2 Flow Rate 4 07/29/23 07:04 BMI result Body Mass Index 28.5 GI: Other: Abdomen soft. All wounds clean dry and intact. Objective Data Active Medications Acetaminophen (Acetaminophen 325 Mg Tablet) 975 mg PO Q6H PRN PRN Reason: Pain, Mild (Pain Scale 1-3) Last Admin: 07/30/23 06:07 Dose: 975 mg Documented By: ANTWAN Calcium Carbonate (Calcium Carbonate 750 Mg Tab.Chew) 750 mg PO Q4H PRN PRN Reason: GI Upset Last Admin: 07/27/23 19:46 Dose: 750 mg Documented By: SADIE Famotidine (Famotidine 20 Mg Tablet) 20 mg PO DAILY PRN PRN Reason: GERD Last Admin: 07/27/23 16:07 Dose: 20 mg Documented By: EVA Fentanyl (Fentanyl Citrate/Pf 100 Mcg/2 Ml Vial) 25 mcg IVPUSH Q5M PRN; Protocol PRN Reason: Pain, Moderate(Pain Scale 4-6) Hydromorphone HCl (Hydromorphone Hcl 0.5 Mg/0.5 Ml Syringe) 0.25 mg IVPUSH Q2H PRN; Protocol PRN Reason: Pain, Moderate(Pain Scale 4-6) Last Admin: 07/29/23 08:05 Dose: 0.25 mg Documented By: DEBRA Hydromorphone HCl (Hydromorphone Hcl 0.5 Mg/0.5 Ml Syringe) 0.25 mg IVPUSH Q5M PRN; Protocol PRN Reason: Pain, Severe (Pain Scale 7-10) Last Admin: 07/26/23 17:05 Dose: 0.25 mg Documented By: DANGELL Piperacillin Sod/Tazobactam (Sod 3.375 gm/ Sodium Chloride) 50 mls @ 100 mls/hr IV Q6H [facility] Last Infusion: 07/30/23 06:37 Dose: Infused Documented By: ANTWAN Ketorolac Tromethamine (Ketorolac Tromethamine 15 Mg/Ml Vial) 15 mg IVPUSH Q6H PRN PRN Reason: Pain, Mild (Pain Scale 1-3) Last Admin: 07/29/23 00:03 Dose: 15 mg Documented By: CHERI Melatonin (Melatonin 3 Mg Tablet) 6 mg PO BEDTIME PRN PRN Reason: Insomnia Last Admin: 07/28/23 21:49 Dose: 6 mg Documented By: DANA Metoprolol Succinate (Metoprolol Succinate Er 25 Mg Tab.Er.24h) 25 mg PO DAILY [facility]; Protocol Last Admin: 07/30/23 07:49 Dose: 25 mg Documented By: DAMON Ondansetron HCl (Ondansetron Hcl 4 Mg/2 Ml Vial) 4 mg IVPUSH Q6H PRN PRN Reason: Nausea and Vomiting Last Admin: 07/27/23 22:23 Dose: 4 mg Documented By: BENI Ondansetron HCl (Ondansetron Hcl 4 Mg/2 Ml Vial) 4 mg IVPUSH ONCE PRN PRN Reason: Nausea and Vomiting Oxycodone HCl (Oxycodone Hcl Immed Release 5 Mg Tablet) 5 mg PO Q4H PRN PRN Reason: Pain, Moderate(Pain Scale 4-6) Last Admin: 07/29/23 22:58 Dose: 5 mg Documented By: ANTWAN Labs 07/28/23 05:04 07/28/23 05:04 Microbiology Microbiology Results: Microbiology 07/26/23 Unknown Gram Stain - Final Peritoneal Fluid Routine Culture - Preliminary Culture in progress. Anaerobic Culture - Preliminary Culture in progress. Procedures Date of Service Date of Service: 07/30/23 Progress Note: A&P Assessment and plan (1) Perforated appendicitis: Status: Acute (2) Peritonitis: Status: Acute Plan DC home. Discharge instructions provided. Time Spent With Patient Time: Total time managing care of this patient today ____ minutes. Quality Stroke Does the patient have a stroke diagnosis?: No VTE Prior VTE?: No VTE Risk Level:: Surgical - moderate VTE Device Contraindication: N/A - Device Ordered VTE Drug Contraindication: Treatment Not Indicated
--- NOTE | 2023-07-31 07:58 | PM.DS ---
DS: Providers Provider Date of Service: 07/30/23 Date of admission: 07/26/23 03:39 Primary care physician: Unknown Physician Consults: 07/26/23 03:24 Consult to General Surgery Stat Consulting Provider: [facility] Reason for consultation: Acute appendicitis Has provider been notified: Yes DS: Diagnosis Discharge Diagnosis (1) Perforated appendicitis: Status: Acute (2) Peritonitis: Status: Acute DS: Summary Hospital Course Hospital Course: See H&P for full details. Briefly, this 27-year-old gentleman with a history of an unknown SVT post ablation and stable on metoprolol presented with abdominal pain for the 3rd time that was a perforated appendicitis with diffuse peritonitis. He underwent laparoscopic appendectomy with washout and placement of a right pericolic drain up towards the liver and a pelvic drain. Intraoperative cultures grew out Bacteroides. His bowel return was sluggish and he was discharged on 07/30/2023 tolerating p.o., with minimal pain. Drains were left in place. Overall condition at the time of discharge is improved Time Attestation Discharge coordination time: Less than 30 minutes Quality: Safe Use of Opioids Does Pt have an Active Cancer Diagnosis on the Problem List?: No Quality: Stroke Does the patient have a stroke diagnosis?: No Physical Exam Vital Signs: Vital Signs: Last Vital Signs Temp 97.3 F 07/30/23 07:42 Pulse 76 07/30/23 07:42 Resp 16 07/30/23 07:42 BP 112/62 07/30/23 08:54 Pulse Ox 98 07/30/23 07:42 O2 Del Method Room Air 07/30/23 07:42 O2 Flow Rate 4 07/29/23 07:04 BMI result Body Mass Index 28.5 DS: Data Data Completed and Pending Completed studies during hospitalization [Text1]: Pending at discharge 07/26/23 15:18 Surgical [PTH] Routine Pending studies at discharge: Pending at discharge 07/26/23 16:09 Surgical [PTH] Routine Discharge Plan Discharge Anticipated Discharge Date/Time: 07/30/23 12:16 Patient Disposition: Home, Self-Care Discharge Diagnosis: s/p lap appy perfed appendicitis Referrals: Physician,Unknown J [Primary Care Provider] - 1 Week Donovan Conklin MD, KELLEE FOWLER [Physician] - 1 Week Discharge Medications: New amoxicillin-pot clavulanate 875-125 mg Tablet 875 mg PO Q12H 7 Days Qty: 13 0RF Continued metoprolol succinate 25 mg tablet extended release 24 hr 25 mg PO DAILY Discharge Orders: Discharge Order (Routine); Ordered 07/30/23 Ordered By: Tylor Townsend Diet: Advance to usual diet Activity on Discharge: No heavy lifting Stand Alone Forms: Patient Portal Discharge page Activity Restrictions/Additional Instructions: You had a laparoscopic appendectomy performed by Dr. Conklin. It is normal to feel some minor abdominal discomfort due to the gas from the operation, however if you develop severe pain in your abdomen or chest, fevers over 100F, vomiting and are unable to keep liquids down, you should contact Dr. Conklin or report to the nearest emergency department. You will need to see Dr. Conklin next week. Office [phone] DO NOT BATHE or SHOWER while drains are present. Trend each drain output every 24 hours & bring to Dr. Conklin next week. If your incisions become red, swollen and tender, draining pus or have problems, please contact Dr. Conklin report to the nearest emergency department. If you have bandages on your incisions, leave them in place for 48 hours, then remove them. You can shower but not soak in a tub after removing the bandages. If there are paper tapes known as butterflies/Steri-Strips, leave them fall off on their own in 1-2 weeks. You do not need to put another bandage on your incisions unless your clothing rubs and irritates your incisions. You may find that pants with an elastic waist like gym cloths or suspenders are more comfortable than pants requiring a belt until your incisions completely heal. Because of the operation, you should not lift more than 20 lb for the next 4 weeks. Any strenuous activity such as lifting more than 20 lb, digging, yoga, any athletic activity, like running, soccer, or other strenuous activity, lifting heavy bags/groceries, swimming, martial arts, or other strenuous athletic activities can cause hernias. If you have any questions regarding a specific activity, please ask Dr. Conklin. Avoiding strenuous activities will minimize the risk of incisional hernias. At your 1 week post-op office visit, Dr. Conklin will discuss returning to work on light duty with you. Since you can perform light duty, you are not disabled, but your employer may not allow you to return until you have no restrictions; it is up to you to discuss this issue, as we cannot disclose personal information. Please bring any paperwork to that follow-up appointment from your employer. Please note that you are not disabled and need to discuss your work restrictions for medical reasons with your employer. If you do not have a follow-up post-op visit, call [phone] to schedule one, or call with questions. If you were prescribed an antibiotic, continue taking the medication as prescribed. Unless you have a medical reason, you should take [id number] Tylenol/acetaminophen, 2 tablets with [id number]-[id number] ibuprofen, 2 tablets, every 6 hours to help with pain. Ice packs are also allowed to minimize pain and swelling. You should eat a high-protein, high-fiber, low-fat diet to optimize healing. Please resume any preoperative medications unless otherwise directed by Dr. Conklin. Please contact your primary care provider for a follow-up appointment in 2 weeks. Care Plan Goals: Complete antibiotic course for peritonitis and allow adequate healing Health Concerns: Follow-up with your heart Plan of Treatment: Complete antibiotic and allow adequate healing Assessment: perforated appendicitis, s/p lap reza Discharge Date/Time: 07/30/23 12:19
== END 2023-07-30 12:19 | disposition home or self-care (01) | DRG 399 ==
LOC: HO.ED 03:27 → HO.EDOVER 03:44 → HO.S3 16:25
PROVIDERS: Admitting Provider Surgery; Emergency Provider Internal Medicine; Visit Provider Surgery
PROC: 0DTJ4ZZ Resection of Appendix, Percutaneous Endoscopic Approach (ICD-10-PCS; CPT 44970; principal; 2023-07-26 13:00)
DX: K35.211 Acute appendicitis with generalized peritonitis, with perforation and abscess (principal); D64.9 Anemia, unspecified; B96.89 Other specified bacterial agents as the cause of diseases classified elsewhere; Z79.899 Other long term (current) drug therapy
CPT/HCPCS: 36415; 74176; 80048; 80053; 81003; 85025; 87070; 87073; 87076; 87205; 88304; 99285; J0131; J0690; J1100; J1170; J1885; J2250; J2270; J2371; J2405; J2543; J2704; J3010; J7120

== ENCOUNTER → 2023-07-26 03:39 | Outpatient (BNV) | payer OTHER, SELFPAY | PROVIDERS: Admitting Provider Surgery; Emergency Provider Internal Medicine; Visit Provider Surgery | DX: K35.32 Acute appendicitis with perforation, localized peritonitis, and gangrene, without abscess (principal); K65.9 Peritonitis, unspecified | CPT/HCPCS: 44970; 99024; 99222 ==

== ENCOUNTER 2023-08-01 09:05 | Outpatient (AMB) | payer OTHER, SELFPAY ==
--- NOTE | 2023-08-01 09:10 | A.OFFVIS_ITS ---
Intake Vital Signs 08/01/23 09:13 Weight 206 lb 12.697 oz BP 127/76 Blood Pressure Location Rt brachial Position Sitting Pulse 113 H Pulse Source Pulse Oximeter Temp 96.6 F L Temp Source Tympanic Pulse Oximetry (%) 100 Oxygen Delivery Method Room Air Intake Visit Reasons: drain removal Allergies No Known Allergies Allergy (Verified 08/01/23 09:16) HPI HPI Comments History of Present Illness Details The patient comes to the office for follow-up after laparoscopic appendectomy for perforated acute appendicitis with diffuse peritonitis on 07/26/2023. GPC with no growth was identified on Gram stain and Bacteroides dem onstrated on intraoperative cultures. The patient is finishing Augmentin, 875 mg b.i.d. x7 days. Patient reports he is doing well overall. He normally sleeps on his abdomen and notes a little shortness of breath while prone, but notes that it is getting better. He has been pulling full volumes on the incentive spirometry and stopped using it. He denies any cough or fevers. His bowels are working he is tolerating his diet but he notes his appetite is not back to normal yet. He does note some irregularity and is tolerating the Augmentin, b.i.d.. He otherwise denies any chest pain or new symptoms. Denies any drainage from his incisions. The patient is accompanied by his lucas Noeen and given permission to discuss his care and answer her questions. [facility] (Reviewed 08/01/23 @ 09:30 by Donovan Conklin MD, [facility], [facility]) Household Members: Spouse Housing: Apartment Do you presently have visiting nurse or other home services: No Alcohol intake: current Alcohol intake frequency: holidays/special occasions only Patient Tobacco Use Status: Never used Tobacco Second Hand Smoke Exposure: No service: No Physical Exam On exam he is anicteric and nontoxic He is having no respiratory difficulty On his abdominal incisions are healing well with no evidence of infection. The suprapubic trocar site has some irritation and an imprint from his pants and belt. I recommended elastic waist clothing, removed his dressings and applied a dry gauze to pad the suprapubic trocar site. His abdomen is otherwise benign with no peritoneal irritation to percussion Results Reviewed Results Reviewed: Pathology confirmed acute appendicitis with no neoplasia Intraoperative cultures included GPC on Gram stain with no growth and Bactero ides cultured. Assessment & Plan Assessment & Plan (1) Perforated appendicitis: Code(s): K35.32 - Acute appendicitis with perforation, localized peritonitis, and gangrene, without abscess (2) Peritonitis: Code(s): K65.9 - Peritonitis, unspecified Plan: Continue Augmentin b.i.d. until completed. Contact me for abdominal pain, fevers, chills, diarrhea or other nonspecific complaints (3) H/O cardiac radiofrequency ablation: Code(s): Z98.890 - Other specified postprocedural states Plan: Drains were removed prior to discharge and his incisions look good Plan Instructions regarding diet and activity were reviewed. Patient declined a work note stating that he has already started working from home and does not require a work note. I will see the patient back to assess his breathing symptoms and he will reach out and contact me if this is worsening. I suspect he is having some limited excursion of his deep breaths due to peritonitis and the should improve as he heals. Coding Level of Care Code Est Pt Level 4 (95181) Global (62444) Diagnoses Perforated appendicitis K35.32 Peritonitis K65.9 H/O cardiac radiofrequency ablation Z98.890
[2023-08-01 09:13] VITALS: BP 127/76; PULSE 113; TEMP 35.9; O2SAT 100
== END 2023-08-01 09:31 | disposition home or self-care (01) ==
PROVIDERS: Visit Provider Surgery
DX: K35.32 Acute appendicitis with perforation, localized peritonitis, and gangrene, without abscess (principal); K65.9 Peritonitis, unspecified; Z98.890 Other specified postprocedural states
CPT/HCPCS: 99024

== ENCOUNTER → 2023-08-01 09:05 | Outpatient (BNVA) | payer OTHER, SELFPAY | PROVIDERS: Visit Provider Surgery ==

== ENCOUNTER 2023-08-08 09:48 | Outpatient (REF) | payer OTHER, SELFPAY ==
[2023-08-08 10:28] LABS: MANUAL DIFF FLAG NO
[2023-08-08 10:43] LABS: Basophils Percent Auto 0.6 % (0-2); Eosinophils Absolute Auto 0.2 X10*3/uL (0.0-0.4); Eosinophils Percent Auto 2.2 % (0-4); Hematocrit 40.4 % (42.0-52.0); Hemoglobin 13.7 g/dl (14.0-18.0); Imm Gran Abs Auto 0.03 X10*3/uL (0.00-0.03); Imm Gran Pct Auto 0.4 % (0.0-0.4); Lymphocytes Absolute Auto 2.2 X10*3/uL (1.2-4.9); Lymphocytes Percent Auto 31.4 % (20-40); Mean Corpuscular HGB Conc 33.9 g/dl (31.0-36.0); Mean Corpuscular Hemoglobin 29.4 pg (27.0-33.0); Mean Corpuscular Volume 86.7 fL (80.0-98.0); Mean Platelet Volume 9.6 fL (9.4-12.4); Monocytes Absolute Auto 0.5 X10*3/uL (0.1-1.2); Monocytes Percent Auto 6.5 % (2-11); Neutrophils Absolute Auto 4.2 x10*3/uL (2.0-8.3); Neutrophils Percent Auto 58.9 % (45-73); Platelet Count 460 X10*3/uL (160-400); Red Blood Count 4.66 X10*6/uL (4.60-5.80); Red Cell Distribution Width 12.6 % (11.0-16.0); White Blood Count 7.1 X10*3/uL (4.8-10.8)
== END 2023-08-08 09:49 | disposition home or self-care (01) ==
LOC: HO.LAB 09:48
PROVIDERS: Visit Provider Surgery
DX: Z90.49 Acquired absence of other specified parts of digestive tract (principal); D64.9 Anemia, unspecified; Z98.890 Other specified postprocedural states
CPT/HCPCS: 36415; 85025

== ENCOUNTER 2023-08-08 09:48 | Outpatient (AMB) | payer OTHER, SELFPAY ==
--- NOTE | 2023-08-08 09:50 | A.OFFVIS_ITS ---
Intake Vital Signs 08/08/23 09:54 Height 6 ft Weight 201 lb 0.985 oz BMI 27.3 BP 133/59 L Blood Pressure Location Rt brachial Position Sitting Pulse 71 Pulse Source Pulse Oximeter Temp 96.8 F Temp Source Tympanic Pulse Oximetry (%) 99 Oxygen Delivery Method Room Air Intake Visit Reasons: post op Allergies No Known Allergies Allergy (Verified 08/01/23 09:16) HPI HPI Comments History of Present Illness Details The patient comes to the office for follow-up after laparoscopic appendectomy for perforated acute appendicitis with diffuse peritonitis on 07/26/2023. GPC with no growth was identified on Gram stain and Bacteroides demonstrated on intraoperative cultures. The patient is finishing Augmentin, 875 mg b.i.d. x7 days. He is doing much better, tolerating his diet and his bowels are working normally. He is interested in increasing his activity and again denied needing a work note. [facility] Surgical History (Updated 08/08/23 @ 09:52 by Donovan Conklin MD, FACS, [facility]) History of laparoscopic appendectomy Household Members: Spouse Housing: Apartment Do you presently have visiting nurse or other home services: No Alcohol intake: current Alcohol intake frequency: holidays/special occasions only Patient Tobacco Use Status: Never used Tobacco Second Hand Smoke Exposure: No service: No Review of Systems Const All systems reviewed & are unremarkable except as noted in HPI and below Physical Exam On exam he is anicteric and nontoxic He is having no respiratory difficulty On his abdominal incisions are healing well with no evidence of infection. The suprapubic trocar site has some irritation and an imprint from his pants and belt. I recommended elastic waist clothing, removed his dressings and applied a dry gauze to pad the suprapubic trocar site. His abdomen is otherwise benign with no peritoneal irritation to percussion Results Reviewed Results Reviewed: Pathology confirmed acute appendicitis with no neoplasia Intraoperative cultures included GPC on Gram stain with no growth and Bacteroides cultured. The patient had presented with slight anemia to the emergency department on 07/26/23 with a Hb 13.5. Repeat CBCD ordered today Assessment & Plan Assessment & Plan (1) History of laparoscopic appendectomy: Comment: 07/26/23 Dr Conklin Code(s): Z90.49 - Acquired absence of other specified parts of digestive tract (2) H/O cardiac radiofrequency ablation: Code(s): Z98.890 - Other specified postprocedural states (3) Anemia: Code(s): D64.9 - Anemia, unspecified Plan The patient has that time to go for a nonfasting CBC today. My office or I will call him with the results. Instructions regarding diet and activity reviewed and apparently understood. The patient will contact me if he has any problems otherwise, he is discharged from my care. Orders: Orders Complete Blood Count Auto Diff Today D64.9 - Anemia, unspecified, Z90.49 - Acquired absence of other specified parts of digestive tract Coding Level of Care Code Global (97103) Diagnoses History of laparoscopic appendectomy Z90.49 H/O cardiac radiofrequency ablation Z98.890 Anemia D64.9
[2023-08-08 09:54] VITALS: BP 133/59; PULSE 71; TEMP 36; O2SAT 99; BMI 27.3
== END 2023-08-08 10:04 | disposition home or self-care (01) ==
PROVIDERS: Visit Provider Surgery
DX: Z90.49 Acquired absence of other specified parts of digestive tract (principal); Z98.890 Other specified postprocedural states; D64.9 Anemia, unspecified
CPT/HCPCS: 99024

== ENCOUNTER 2023-08-15 16:26 | Outpatient (AMB) | payer OTHER, SELFPAY ==
--- NOTE | 2023-08-15 16:25 | A.OFFVIS_ITS ---
Intake Vital Signs 08/15/23 16:27 Height 6 ft BP 124/64 Blood Pressure Location Rt brachial Position Sitting Pulse 75 Pulse Source Pulse Oximeter Temp 95.8 F L Temp Source Temporal Artery Scan Pulse Oximetry (%) 100 Oxygen Delivery Method Room Air Intake Visit Reasons: incision check Science Editor Required: No Fresh Food Manager: Fresh Food Manager offered & declined Allergies No Known Allergies Allergy (Verified 08/15/23 16:28) Medication List - Last Reconciled 08/15/23 by Donovan Conklin MD, KELLEE FOWLER metoprolol succinate ER 25 mg PO DAILY HPI HPI Comments History of Present Illness Details The patient came in for follow-up since he has been having abdominal pain and pressure involving his periumbilical and pelvic area. He had undergone laparoscopic appendectomy for perforated appendicitis 07/26/2023 but notes he is having progressive symptoms which led to him contacting the office. He denies any diarrhea, rectal bleeding but notes significant abdominal pain with urination. He denies any fevers or chills and notes his diet is off and he is not particularly hungry. He is having no shaking chills. During his presentation on 07/25, he was noted to have mild anemia which persisted postoperatively. He otherwise denies interval change and reports he is taking a multivitamin with iron. [facility] Surgical History History of laparoscopic appendectomy Social History Household Members: Spouse Housing: Apartment Do you presently have visiting nurse or other home services: No Alcohol intake: current Alcohol intake frequency: holidays/special occasions only Patient Tobacco Use Status: Never used Tobacco Second Hand Smoke Exposure: No service: No Review of Systems Const All systems reviewed & are unremarkable except as noted in HPI and below Physical Exam Vital Signs: Last Vital Signs Temp 95.8 F L 08/15/23 16:27 Pulse 75 08/15/23 16:27 BP 124/64 08/15/23 16:27 Pulse Ox 100 08/15/23 16:27 Oxygen Delivery Method Room Air 08/15/23 16:27 On exam, the patient appears tired but nontoxic He is having no respiratory difficulty He is anicteric His abdominal incisions are healing well with a normal healing ridge. There is some palpable discomfort in the left lower quadrant incision but no hernia on Valsalva. No peritoneal sign or rigidity is present Results Reviewed Results Reviewed: Pathology confirmed acute appendicitis with no neoplasia Intraoperative cultures included GPC on Gram stain with no growth and Bacteroides cultured. The patient had presented with slight anemia to the emergency department on 07/26/23 with a Hb 13.5. Assessment & Plan Assessment & Plan (1) History of laparoscopic appendectomy: Comment: 07/26/23 Dr Conklin Code(s): Z90.49 - Acquired absence of other specified parts of digestive tract (2) H/O cardiac radiofrequency ablation: Code(s): Z98.890 - Other specified postprocedural states (3) Anemia: Code(s): D64.9 - Anemia, unspecified Plan The patient is reporting unusual symptoms of abdominal pain without fevers and given his previous perforated appendicitis may have an unusual interloop abscess or pelvic collection contributing to his symptoms. I have recommended an ordered a stat CT with oral and IV contrast to assess for abscess. Normal healing ridge is are present at this time with no evidence of incisional hernia. No significant abdominal pain is present at this time to mandate urgent or emergent exploration, so we will follow-up after the CT is performed. The importance of following up with his PCP regarding his persistent anemia was also discussed. Patient continues to deny noting any gross blood as blood per rectum, hematuria or nose bleeds and denies any melena. As previously noted, the patient is adopted so no family history is known. Follow-up post CT. Orders: Orders CT abdomen pelvis w IV con Today D64.9 - Anemia, unspecified, Z90.49 - Acquired absence of other specified parts of digestive tract, Z98.890 - Other specified postprocedural states Coding Level of Care Code Global (71929) Diagnoses History of laparoscopic appendectomy Z90.49 H/O cardiac radiofrequency ablation Z98.890 Anemia D64.9
[2023-08-15 16:27] VITALS: BP 124/64; PULSE 75; TEMP 35.4; O2SAT 100
== END 2023-08-15 16:48 | disposition home or self-care (01) ==
LOC: HO.HGS 16:26
PROVIDERS: Visit Provider Surgery
DX: Z90.49 Acquired absence of other specified parts of digestive tract (principal); Z98.890 Other specified postprocedural states; D64.9 Anemia, unspecified
CPT/HCPCS: 99024

== ENCOUNTER → 2023-08-15 16:26 | Outpatient (BNVA) | payer OTHER, SELFPAY | PROVIDERS: Visit Provider Surgery ==